=== PATIENT | female | born 1970 | race African-American/Black ===

== ENCOUNTER 2017-02-07 08:30 | Inpatient (IN) | payer OTHER ==
[2017-02-07 09:13] VITALS: BMI 23.3
--- NOTE | 2017-02-07 12:28 | HP ---
COWS - Scale Resting Pulse: 0= ID 80 or Below Sweatin=Flushed/Facial Moisture Restless Observation: 3= Extraneous Movement Pupil Size: 2= Moderately Dilated Bone or Joint Aches: 2= Severe Diffuse Aches Runny Nose/ Eye Tearin= Runny Nose/Eyes GI Upset > 30mins: 3= Vomiting/Diarrhea Tremor Observation: 2= Slight Tremor Visible Yawning Observation: 2= >3x During Session Anxiety or Irritability: 2=Irritable/Anxious Goose Flesh Skin: 0=Smooth Skin COWS Score: 20 CIWA Score - CIWA Score Nausea/Vomitin Muscle Tremors: 3 Anxiety: 3 Agitation: 3 Paroxysmal Sweats: 2 Orientation: 0-Oriented Tacttile Disturbances: 2-Mild Itch/Numbness/Burn Auditory Disturbances: 2-Mild Harshness/Frighten Visual Disturbances: 2-Mild Sensitivity Headache: 2-Mild CIWA-Ar Total Score: 22 Admission ROS [facility]HS - HPI Chief Complaint: i need help to stop using heroin and alcohol Allergies/Adverse Reactions: Allergies Allergy/AdvReac Type Severity Reaction Status Date / Time No Known Allergies Allergy Verified 02/07/17 10:58 History of Present Illness: this 46 years old female with heroin and alcohol dependence,seeking detox,last treatment in 05/05/16 to 01/09/16 [facility] nicotine dependence depression longest period of sobriety 6 years Exam Limitations: No Limitations - Ebola screening Have you traveled outside of the country in the last 21 days: No Have you had contact with anyone from an Ebola affected area: No Have you been sick,other than usual withdrawal symptoms: No Do you have a fever: No - Review of Systems Constitutional: Chills, Diaphoresis, Loss of Appetite, Malaise, Night Sweats, Changes in sleep, Weakness, Unintentional Wgt. Loss EENT: reports: Tearing, Nose Congestion Respiratory: reports: No Symptoms reported Cardiac: reports: Palpitations GI: reports: Diarrhea, Nausea, Vomiting, Abdominal cramping : reports: No Symptoms Reported Musculoskeletal: reports: Back Pain, Joint Pain, Muscle Pain, Joint Stiffness Integumentary: reports: Dryness Neuro: reports: Headache, Tremors Endocrine: reports: No Symptoms Reported Hematology: reports: No Symptoms Reported Psychiatric: reports: Depressed Patient History - Patient Medical History Hx Anemia: No Hx Asthma: No Hx Chronic Obstructive Pulmonary Disease (COPD): No Hx Cancer: No Hx Cardiac Disorders: No Hx Congestive Heart Failure: No Hx Hypertension: No Hx Hypercholesterolemia: No Hx Pacemaker: No HX Cerebrovascular Accident: No Hx Seizures: No Hx Dementia: No Hx Diabetes: No Hx Gastrointestinal Disorders: No Hx Liver Disease: No Hx Genitourinary Disorders: No Hx Sexually Transmitted Disorders: No Hx Renal Disease (ESRD): No Hx Thyroid Disease: No Hx Human Immunodeficiency Virus (HIV): No (last 05/13) Hx Hepatitis C: No Hx Depression: Yes Hx Suicide Attempt: No Hx Bipolar Disorder: No Hx Schizophrenia: Yes (schizoeffective) - Patient Surgical History Past Surgical History: No Hx Neurologic Surgery: No Hx Cataract Extraction: No Hx Cardiac Surgery: No Hx Lung Surgery: No Hx Breast Surgery: No Hx Breast Biopsy: No Hx Abdominal Surgery: No Hx Appendectomy: No Hx Cholecystectomy: No Hx Genitourinary Surgery: No Hx Section: No Hx Orthopedic Surgery: Yes (ambulatory surgery R wrist in 2014 etiology ?) Anesthesia Reaction: No - PPD History Previous Implant?: Yes Documented Results: Negative w/proof Implanted On Prior [facility] Admission?: Yes Date: 11/14/15 PPD to be Administered?: Yes - Reproductive History Patient is a Female of Child Bearing Age (11 -55 yrs old): Yes Last Menstrual Period: 01/26/17 Patient : No - Smoking Cessation Smoking history: Current every day smoker Have you smoked in the past 12 months: Yes Aproximately how many cigarettes per day: 5 Hx Chewing Tobacco Use: No Initiated information on smoking cessation: Yes 'Breaking Loose' booklet given: 02/07/17 - Substance & Tx. History Hx Alcohol Use: Yes Hx Substance Use: Yes Substance Use Type: Alcohol, Heroin Hx Substance Use Treatment: Yes (05/05/16 to 05/10/16) - Substances Abused Alcohol Route: Oral Frequency: Daily Amount used: beer(3-4 -18 oz bottles) Age of first use: 16 Date of Last Use: 02/07/17 Heroin Route: Smoking Frequency: Daily Amount used: 7 bags Age of first use: 30 Date of Last Use: 02/07/17 Family Disease History - Family Disease History Family Disease History: Diabetes: Grandparent (lung/brain), Heart Disease: Mother (htn, PE), CA: Grandparent, Other: Father (substance use) Admission Physical Exam [facility] - Vital Signs Vital Signs: Vital Signs - 24 hr 02/07/17 09:05 Temperature 98 F Pulse Rate 78 Respiratory 20 Rate Blood Pressure 148/84 - Physical General Appearance: Yes: Moderate Distress, Tremorous, Irritable, Sweating, Anxious HEENTM: Yes: Normal ENT Inspection, JUDY, Pharynx Normal Respiratory: Yes: Lungs Clear, Normal Breath Sounds, No Respiratory Distress Neck: Yes: Within Normal Limits, Supple, Trachea in good position Breast: Yes: Breast Exam Deferred Cardiology: Yes: Within Normal Limits, Regular Rhythm, Regular Rate, S1, S2 Abdominal: Yes: Within Normal Limits, Normal Bowel Sounds, Non Tender, Flat, Soft Genitourinary: Yes: Within Normal Limits Back: Yes: Muscle Spasm Musculoskeletal: Yes: Back pain, Muscle Pain (unable to use right hand for 2 years after [facility] hand at [facility] [address] rdz hand surgeon,no follow up) Extremities: Yes: Other (unable to use right hand for 2 years after surgery tingling numbness,pain and neddle of right hand from wrist to had nuable to do flexion of fingerr unable to make a fist unable to do adduction and abduction of fingers of right hand tingling and numbness of right hands and fingers) Neurological: Yes: Alert (tingling and numbness of right hand fingers unable to move right hand and fingers scar of right wrist) Integumentary: Yes: Dry Lymphatic: Yes: Within Normal Limits - Diagnostic (1) Alcohol dependence with uncomplicated withdrawal Current Visit: No Status: Chronic (2) Nicotine dependence Current Visit: No Status: Chronic Qualifiers: Nicotine product type: cigarettes (3) Opioid dependence with withdrawal Current Visit: No Status: Chronic (4) Schizoaffective disorder Current Visit: No Status: Chronic (5) Deformity of right wrist Current Visit: Yes Status: Acute (6) S/P wrist surgery Current Visit: Yes Status: Acute Cleared for Admission [facility] - Detox or Rehab [facility] Level of Care: Medically Managed Detox Regimen/Protocol: Methadone/Librium [facility] Breath Alcohol Content Breath Alcohol Content: 0.036 Urine Pregancy Test - Result Urine Test Results: Negative- NO Line Present Urine Drug Screen - Results Drug Screen Negative: No Urine Drug Screen Results: THC-Marijuana, SLIM-Cocaine, OPI-Opiates, PCP- Phencyclidine
[2017-02-07] MEDS ORDERED: IBUPROFEN 400 MG TABLET (FP) PO PRN (13:04)
[2017-02-07] MEDS ORDERED: MENTHOL/PHENOL 1 EACH UD MM PRN (13:04)
[2017-02-07] MEDS ORDERED: guaiFENesin/D-METHORPHAN HB 10 ML UNIT-DOSE CUPS PO PRN (13:04)
[2017-02-07] MEDS ORDERED: MAGNESIUM CITRATE 300 ML BOTTLE PO PRN (13:04)
[2017-02-07] MEDS ORDERED: LOPERAMIDE HCL 2 MG CAPSULE PO PRN (13:04)
[2017-02-07] MEDS ORDERED: ACETAMINOPHEN 325 MG TABLET (FP) PO PRN (13:04)
[2017-02-07] MEDS ORDERED: MAG HYDROX/AL HYDROX/SIMETH 30 ML UNIT-DOSE CUP PO PRN (13:04)
[2017-02-07] MEDS ORDERED: MAGNESIUM HYDROX 2400MG/30ML ORAL SUSPENSION 30 ML CUP PO PRN (13:04)
[2017-02-07] MEDS ORDERED: chlordiazePOXIDE HCL 25 MG CAPSULE PO PRN (13:04)
[2017-02-07] MEDS ORDERED: P-EPHED 60MG/TRIPROLIDI 2.5MG TABLET PO PRN (13:04)
[2017-02-07] MEDS ORDERED: hydrOXYzine PAMOATE 50 MG CAPSULE (FP) PO PRN (13:04)
[2017-02-07] MEDS ORDERED: chlordiazePOXIDE HCL 25 MG CAPSULE PO ONE (13:45)
[2017-02-07] MEDS ORDERED: METHADONE HCL 10 MG TABLET (FOR DETOX USE ONLY) PO ONE ×2 (13:45→23:00)
--- NOTE | 2017-02-07 14:49 | CONSULT ---
[facility] Psychiatric Consult - Data Date of interview: 02/07/17 Admission source: [facility] Identifying data: This is 46 years old female with history of Scvhizoaffective disorder, intoxicated with: Heroin, Alcohol and Nicotine Substance Abuse History: - Smoking Cessation. Smoking history: Current every day smoker. Have you smoked in the past 12 months: Yes. Aproximately how many cigarettes per day: 5. Hx Chewing Tobacco Use: No. Initiated information on smoking cessation: Yes. 'Breaking Loose' booklet given: 02/07/17. - Substance & Tx. History. Hx Alcohol Use: Yes. Hx Substance Use: Yes. Substance Use Type : Alcohol, Heroin. Hx Substance Use Treatment: Yes (05/05/16 to 05/10/16). - Substances Abused. Alcohol. Route: Oral. Frequency: Daily. Amount used: beer(3-4 -18 oz bottles). Age of first use: 16. Date of Last Use: 02/07/17. * * Heroin. Route: Smoking. Frequency: Daily. Amount used: 7 bags. Age of first use: 30. Date of Last Use: 02/07/17 Medical History: History of Wrist reconstractive surgery, denies bhavna other significant medical poblems Psychiatric History: Patient reports history of Schizoaffective disorder, Bipolar disorder, denies history of psychiatric hospitalizations, reports taking prior to admission: Lexapro 5mg poqd. Aboilify 10mg poqd. Seroquel 100mg po qhs Physical/Sexual Abuse/Trauma History: Denies, unclear PTSD Additional Comment: Lexapro 5mg poqd. Aboilify 10mg poqd. Seroquel 100mg po qhs Mental Status Exam - Mental Status Exam Alert and Oriented to: Person Cognitive Function: Fair Patient Appearance: Well Groomed Mood: Euthymic Affect: Mood Congruent Patient Behavior: Cooperative Speech Pattern: Appropriate Voice Loudness: Normal Thought Process: Goal Oriented Thought Disorder: Being Controlled Hallucinations: Denies Suicidal Ideation: Denies Homicidal Ideation: Denies Insight/Judgement: Fair Sleep: Difficulty falling asleep Appetite: Fair Muscle strength/Tone: Normal Gait/Station: Normal Additional Comments: Lexapro 5mg poqd. Aboilify 10mg poqd. Seroquel 100mg po qhs Psychiatric Findings - Problem List ([place] 1, 2,3) (1) Drug-induced mood disorder Current Visit: No Status: Acute (2) Non compliance w medication regimen Current Visit: No Status: Acute (3) Alcohol dependence with uncomplicated withdrawal Current Visit: No Status: Chronic (4) Nicotine dependence Current Visit: No Status: Chronic Qualifiers: Nicotine product type: cigarettes (5) Opioid dependence with withdrawal Current Visit: No Status: Chronic (6) PTSD (post-traumatic stress disorder) Current Visit: No Status: Chronic (7) Schizoaffective disorder Current Visit: No Status: Chronic - Initial Treatment Plan Initial Treatment Plan: Lexapro 5mg poqd. Aboilify 10mg poqd. Seroquel 100mg po qhs
[2017-02-07 15:40] LABS: HIV 1 & 2 AB NEGATIVE; HIV 1 AGp24 NEGATIVE
[2017-02-07] MEDS: chlordiazePOXIDE HCL 25 MG CAPSULE PO SCH ×2 (17:15→22:41)
[2017-02-07 22:36] LABS: URINE APPEARANCE CLEAR; URINE BILIRUBIN NEGATIVE (NEGATIVE); URINE COLOR AMBER; URINE GLUCOSE (UA) NEGATIVE (NEGATIVE); URINE KETONE TRACE (NEGATIVE); URINE LEUK ESTERASE NEGATIVE (NEGATIVE); URINE NITRITE NEGATIVE (NEGATIVE); URINE PROTEIN NEGATIVE (NEGATIVE)
[2017-02-07 22:40] LABS: URINE BLOOD 1+ (NEGATIVE)
[2017-02-07] MEDS: QUEtiapine FUMARATE 100 MG TABLET (FP) PO SCH (22:41)
[2017-02-07] MEDS: THIAMINE HCL 100 MG TABLET (FP) PO SCH (22:41)
[2017-02-07 22:44] LABS: URINE HYALINE CAST 9 /lpf; URINE MUCUS MODERATE; URINE RBC 4 /hpf (0-3); URINE WBC 3 /hpf (3-5)
[2017-02-08] MEDS: chlordiazePOXIDE HCL 25 MG CAPSULE PO SCH ×4 (06:00→22:28)
--- NOTE | 2017-02-08 09:31 | EKG ---
Test Reason : Blood Pressure : / mmHG Vent. Rate : 068 BPM Atrial Rate : 068 BPM P-R Int : 128 ms QRS Dur : 074 ms QT Int : 400 ms P-R-T Axes : 056 018 042 degrees QTc Int : 425 ms NORMAL SINUS RHYTHM NORMAL ECG NO PREVIOUS ECGS AVAILABLE Confirmed by NEIDA MAYA MD ([id number]) on 02/08/2017 9:31:08 AM Referred By: Confirmed By:NEIDA MAYA MD
[2017-02-08] MEDS ORDERED: METHADONE HCL 10 MG TABLET (FOR DETOX USE ONLY) PO SCH (10:00)
[2017-02-08 10:01] LABS: MCH 32.8 pg (25.7-33.7); MCHC 32.8 g/dl (32.0-36.0); MEAN CELL VOLUME 100.1 fl (80-96); MEAN PLT VOLUME 8.9 fl (7.5-11.1); PLATELET COUNT 218 K/MM3 (134-434); WHITE BLOOD COUNT 11.2 K/mm3 (4.0-10.0)
[2017-02-08 10:14] LABS: ALBUMIN 4.1 g/dl (3.4-5.0); ANION GAP 7 (8-16); CALCIUM 9.3 mg/dL (8.5-10.1); CO2 27 mmol/L (21-32); GLUCOSE,RANDOM 75 mg/dL (74-106)
[2017-02-08 10:19] LABS: ALK PHOS 100 U/L (45-117); BILIRUBIN,TOTAL 0.5 mg/dL (0.2-1.0); CREATININE 1.1 mg/dL (0.55-1.02); SGOT/AST 17 U/L (15-37); SGPT/ALT 17 U/L (12-78); TOT PROT 7.2 g/dl (6.4-8.2)
[2017-02-08] MEDS: ESCITALOPRAM OXALATE 10 MG TABLET (FP) PO SCH (10:20)
[2017-02-08] MEDS: PRENATAL VITAMINS W/ FOLIC ACID TABLET (FP) PO SCH (10:21)
[2017-02-08] MEDS: ARIPiprazole 10 MG TABLET PO SCH (10:23)
--- NOTE | 2017-02-08 10:48 | PN ---
[facility] CIWA - CIWA Score Nausea/Vomitin-No Nausea/No Vomiting Muscle Tremors: 4-Moderate,w/Arms Extend Anxiety: 4-Mod. Anxious/Guarded Agitation: 4-Moderately Restless Paroxysmal Sweats: No Perspiration Orientation: 0-Oriented Tacttile Disturbances: 3-Moderate Itch/Numb/Burn Auditory Disturbances: 0-None Visual Disturbances: 0-None Headache: 0-None Present CIWA-Ar Total Score: 15 S COWS - Scale Resting Pulse: 0= [place] 80 or Below Sweatin= Chills/Flushing Restless Observation: 3= Extraneous Movement Pupil Size: 2= Moderately Dilated Bone or Joint Aches: 2= Severe Diffuse Aches Runny Nose/ Eye Tearin= Nasal Congestion GI Upset > 30mins: 1= Stomach Cramp Tremor Observation of Outstretched Hands: 1= Tremor [place], Not Seen Yawning Observation: 1= 1-2x During Session Anxiety or Irritability: 2=Irritable/Anxious Goose Flesh Skin: 0=Smooth Skin COWS Score: 14 [facility] Progress Note (SOAP) Subjective: ANXIETY,TREMORS,STATES MEDS EFFECTIVE W/S CONTROL. Objective: 02/08/17 10:47 Vital Signs Temperature 96.9 F L 02/08/17 06:24 Pulse Rate 71 02/08/17 06:24 Respiratory Rate 18 02/08/17 06:24 Blood Pressure 101/66 02/08/17 06:24 O2 Sat by Pulse Oximetry (%) Laboratory Last Values WBC 11.2 K/mm3 (4.0-10.0) H D 02/08/17 06:00 RBC 4.46 M/mm3 (3.60-5.2) 02/08/17 06:00 Hgb 14.6 GM/dL (10.7-15.3) D 02/08/17 06:00 Hct 44.7 % (32.4-45.2) 02/08/17 06:00 MCV 100.1 fl (80-96) H 02/08/17 06:00 MCH 32.8 pg (25.7-33.7) 02/08/17 06:00 MCHC 32.8 g/dl (32.0-36.0) 02/08/17 06:00 RDW 14.0 % (11.6-15.6) 02/08/17 06:00 Plt Count 218 K/MM3 (134-434) 02/08/17 06:00 MPV 8.9 fl (7.5-11.1) 02/08/17 06:00 Urine Color Radha 02/07/17 22:00 Urine Appearance Clear 02/07/17 22:00 Urine pH 5.0 (5.0-8.0) 02/07/17 22:00 Ur Specific [place] >= 1.030 (1.005-1.025) H 02/07/17 22:00 Urine Protein Negative (NEGATIVE) 02/07/17 22:00 Urine Glucose (UA) Negative (NEGATIVE) 02/07/17 22:00 Urine Ketones Trace (NEGATIVE) H 02/07/17 22:00 Urine Blood 1+ (NEGATIVE) H 02/07/17 22:00 Urine Nitrite Negative (NEGATIVE) 02/07/17 22:00 Urine Bilirubin Negative (NEGATIVE) 02/07/17 22:00 Urine Urobilinogen 2.0 mg/dL (0.2-1.0) H 02/07/17 22:00 Ur Leukocyte Esterase Negative (NEGATIVE) 02/07/17 22:00 Urine RBC 4 /hpf (0-3) 02/07/17 22:00 Urine WBC 3 /hpf (3-5) 02/07/17 22:00 Ur Epithelial Cells Few /hpf (FEW) 02/07/17 22:00 Hyaline Casts 9 /lpf 02/07/17 22:00 Urine Mucus Moderate 02/07/17 22:00 HIV 1&2 Antibody Screen Negative 02/07/17 11:40 HIV P24 Antigen Negative 02/07/17 11:40 LABS NOTED Assessment: 02/08/17 10:48 WITHDRAWAL SX Plan: CONTINUE DETOX
[2017-02-08] MEDS: THIAMINE HCL 100 MG TABLET (FP) PO SCH (22:28)
[2017-02-08] MEDS: QUEtiapine FUMARATE 100 MG TABLET (FP) PO SCH (22:28)
[2017-02-09] MEDS: chlordiazePOXIDE HCL 25 MG CAPSULE PO SCH ×2 (06:24→10:25)
[2017-02-09] MEDS: PRENATAL VITAMINS W/ FOLIC ACID TABLET (FP) PO SCH (10:24)
[2017-02-09] MEDS: ESCITALOPRAM OXALATE 10 MG TABLET (FP) PO SCH (10:25)
[2017-02-09] MEDS: ARIPiprazole 10 MG TABLET PO SCH (10:25)
[2017-02-09] MEDS: METHADONE HCL 5 MG TABLET (FOR DETOX USE ONLY) PO SCH (10:25)
--- NOTE | 2017-02-09 11:06 | PN ---
[facility] CIWA - CIWA Score Nausea/Vomitin Muscle Tremors: 2 Anxiety: 2 Agitation: 2 Paroxysmal Sweats: 2 Orientation: 0-Oriented Tacttile Disturbances: 1-Very Mild Itch/Numbness Auditory Disturbances: 0-None Visual Disturbances: 0-None Headache: 1-Very Mild CIWA-Ar Total Score: 12 S COWS - Scale Resting Pulse: 0= [place] 80 or Below Sweatin=Flushed/Facial Moisture Restless Observation: 3= Extraneous Movement Pupil Size: 0= Normal to Room Light Bone or Joint Aches: 1= Mild Discomfort Runny Nose/ Eye Tearin= Nasal Congestion GI Upset > 30mins: 2= Nausea/Diarrhea Tremor Observation of Outstretched Hands: 2= Slight Tremor Visible Yawning Observation: 0= None Anxiety or Irritability: 1=Feels Anxious/Irritable Goose Flesh Skin: 0=Smooth Skin COWS Score: 12 S Progress Note (SOAP) Subjective: mild abdominal discomfort, vague aches and pain, mild shakes and sweats Objective: 02/09/17 11:07 Laboratory Last Values WBC 11.2 K/mm3 (4.0-10.0) H D 02/08/17 06:00 RBC 4.46 M/mm3 (3.60-5.2) 02/08/17 06:00 Hgb 14.6 GM/dL (10.7-15.3) D 02/08/17 06:00 Hct 44.7 % (32.4-45.2) 02/08/17 06:00 MCV 100.1 fl (80-96) H 02/08/17 06:00 MCH 32.8 pg (25.7-33.7) 02/08/17 06:00 MCHC 32.8 g/dl (32.0-36.0) 02/08/17 06:00 RDW 14.0 % (11.6-15.6) 02/08/17 06:00 Plt Count 218 K/MM3 (134-434) 02/08/17 06:00 MPV 8.9 fl (7.5-11.1) 02/08/17 06:00 Sodium 139 mmol/L (136-145) 02/08/17 06:00 Potassium 4.0 mmol/L (3.5-5.1) 02/08/17 06:00 Chloride 105 mmol/L (98-107) 02/08/17 06:00 Carbon Dioxide 27 mmol/L (21-32) 02/08/17 06:00 Anion Gap 7 (8-16) L 02/08/17 06:00 BUN 10 mg/dL (7-18) 02/08/17 06:00 Creatinine 1.1 mg/dL (0.55-1.02) H D 02/08/17 06:00 Creat Clearance w eGFR 53.47 (>60) 02/08/17 06:00 Random Glucose 75 mg/dL (74-106) D 02/08/17 06:00 Calcium 9.3 mg/dL (8.5-10.1) 02/08/17 06:00 Total Bilirubin 0.5 mg/dL (0.2-1.0) 02/08/17 06:00 AST 17 U/L (15-37) D 02/08/17 06:00 ALT 17 U/L (12-78) D 02/08/17 06:00 Alkaline Phosphatase 100 U/L (45-117) D 02/08/17 06:00 Total Protein 7.2 g/dl (6.4-8.2) D 02/08/17 06:00 Albumin 4.1 g/dl (3.4-5.0) D 02/08/17 06:00 Urine Color Radha 02/07/17 22:00 Urine Appearance Clear 02/07/17 22:00 Urine pH 5.0 (5.0-8.0) 02/07/17 22:00 Ur Specific [place] >= 1.030 (1.005-1.025) H 02/07/17 22:00 Urine Protein Negative (NEGATIVE) 02/07/17 22:00 Urine Glucose (UA) Negative (NEGATIVE) 02/07/17 22:00 Urine Ketones Trace (NEGATIVE) H 02/07/17 22:00 Urine Blood 1+ (NEGATIVE) H 02/07/17 22:00 Urine Nitrite Negative (NEGATIVE) 02/07/17 22:00 Urine Bilirubin Negative (NEGATIVE) 02/07/17 22:00 Urine Urobilinogen 2.0 mg/dL (0.2-1.0) H 02/07/17 22:00 Ur Leukocyte Esterase Negative (NEGATIVE) 02/07/17 22:00 Urine RBC 4 /hpf (0-3) 02/07/17 22:00 Urine WBC 3 /hpf (3-5) 02/07/17 22:00 Ur Epithelial Cells Few /hpf (FEW) 02/07/17 22:00 Hyaline Casts 9 /lpf 02/07/17 22:00 Urine Mucus Moderate 02/07/17 22:00 RPR Titer Nonreactive (NONREACTIVE) 02/08/17 06:00 HIV 1&2 Antibody Screen Negative 02/07/17 11:40 HIV P24 Antigen Negative 02/07/17 11:40 labs noted Assessment: 02/09/17 11:07 withdrawal sx Plan: continue detox
[2017-02-09] MEDS: chlordiazePOXIDE 5 MG CAPSULE PO SCH ×2 (17:21→22:16)
[2017-02-09] MEDS: THIAMINE HCL 100 MG TABLET (FP) PO SCH (22:15)
[2017-02-09] MEDS: QUEtiapine FUMARATE 100 MG TABLET (FP) PO SCH (22:16)
[2017-02-09] MEDS: diphenhydrAMINE HCL 50 MG CAPSULE PO PRN (22:16)
[2017-02-10] MEDS: chlordiazePOXIDE 5 MG CAPSULE PO SCH ×2 (06:14→10:12)
[2017-02-10] MEDS: PRENATAL VITAMINS W/ FOLIC ACID TABLET (FP) PO SCH (10:12)
[2017-02-10] MEDS: ARIPiprazole 10 MG TABLET PO SCH (10:12)
[2017-02-10] MEDS: METHADONE HCL 5 MG TABLET (FOR DETOX USE ONLY) PO SCH (10:12)
[2017-02-10] MEDS: ESCITALOPRAM OXALATE 10 MG TABLET (FP) PO SCH (10:12)
--- NOTE | 2017-02-10 16:39 | PN ---
[facility] Progress Note (SOAP) Subjective: Anxious, sweating, interrupted sleep, restless Objective: 02/10/17 16:34 Last Vital Signs Temp Pulse Resp BP Pulse Ox 96.7 F L 83 18 133/77 02/10/17 13:47 02/10/17 13:47 02/10/17 13:47 02/10/17 13:47 Laboratory Tests 02/07/17 02/07/17 02/08/17 11:40 22:00 06:00 WBC 11.2 H D RBC 4.46 Hgb 14.6 D Hct 44.7 MCV 100.1 H MCH 32.8 MCHC 32.8 RDW 14.0 Plt Count 218 MPV 8.9 Sodium Potassium Chloride Carbon Dioxide Anion Gap BUN Creatinine Creat Clearance w eGFR Random Glucose Calcium Total Bilirubin AST ALT Alkaline Phosphatase Total Protein Albumin Urine Color Radha Urine Appearance Clear Urine pH 5.0 Ur Specific [place] >= 1.030 H Urine Protein Negative Urine Glucose (UA) Negative Urine Ketones Trace H Urine Blood 1+ H Urine Nitrite Negative Urine Bilirubin Negative Urine Urobilinogen 2.0 H Ur Leukocyte Esterase Negative Urine RBC 4 Urine WBC 3 Ur Epithelial Cells Few Hyaline Casts 9 Urine Mucus Moderate RPR Titer HIV 1&2 Antibody Screen Negative HIV P24 Antigen Negative 02/08/17 02/08/17 06:00 06:00 WBC RBC Hgb Hct MCV MCH MCHC RDW Plt Count MPV Sodium 139 Potassium 4.0 Chloride 105 Carbon Dioxide 27 Anion Gap 7 L BUN 10 Creatinine 1.1 H D Creat Clearance w eGFR 53.47 Random Glucose 75 D Calcium 9.3 Total Bilirubin 0.5 AST 17 D ALT 17 D Alkaline Phosphatase 100 D Total Protein 7.2 D Albumin 4.1 D Urine Color Urine Appearance Urine pH Ur Specific [place] Urine Protein Urine Glucose (UA) Urine Ketones Urine Blood Urine Nitrite Urine Bilirubin Urine Urobilinogen Ur Leukocyte Esterase Urine RBC Urine WBC Ur Epithelial Cells Hyaline Casts Urine Mucus RPR Titer Nonreactive HIV 1&2 Antibody Screen HIV P24 Antigen Labs noted: WBC 11.2, serum creatinine 1.1, GFR 53.47; UA: 1+ blood Assessment: 02/10/17 16:37 Withdrawal symptoms Noted with leukocytosis, prerenal azotemia and microscopic hematuria Plan: Continue detox Leukocytosis: repeat CBC in AM Prerenal azotemia: encouraged to drink lots of water, repeat BMP Microscopic hematuria: repeat UA
[2017-02-10] MEDS: chlordiazePOXIDE HCL 10 MG CAPSULE PO SCH ×2 (17:25→22:40)
[2017-02-10] MEDS: QUEtiapine FUMARATE 100 MG TABLET (FP) PO SCH (22:40)
[2017-02-10] MEDS: THIAMINE HCL 100 MG TABLET (FP) PO SCH (22:40)
[2017-02-10] MEDS: diphenhydrAMINE HCL 50 MG CAPSULE PO PRN (22:40)
[2017-02-11] MEDS: chlordiazePOXIDE HCL 10 MG CAPSULE PO SCH ×2 (05:57→10:29)
[2017-02-11] MEDS ORDERED: METHADONE HCL 10 MG TABLET (FOR DETOX USE ONLY) PO SCH (10:00)
[2017-02-11 10:08] LABS: BASOPHIL 0.5 % (0-2.0); EOSINOPHIL 2.7 % (0-4.5); MCH 32.9 pg (25.7-33.7); MCHC 32.8 g/dl (32.0-36.0); MEAN CELL VOLUME 100.3 fl (80-96); MEAN PLT VOLUME 8.4 fl (7.5-11.1); NEUTROPHILS 55.3 % (42.8-82.8); PLATELET COUNT 178 K/MM3 (134-434); RDW 14.1 % (11.6-15.6); WHITE BLOOD COUNT 8.7 K/mm3 (4.0-10.0)
[2017-02-11 10:11] LABS: URINE APPEARANCE CLEAR; URINE BILIRUBIN NEGATIVE (NEGATIVE); URINE BLOOD NEGATIVE (NEGATIVE); URINE COLOR LTYELLOW; URINE GLUCOSE (UA) NEGATIVE (NEGATIVE); URINE KETONE NEGATIVE (NEGATIVE); URINE LEUK ESTERASE NEGATIVE (NEGATIVE); URINE NITRITE NEGATIVE (NEGATIVE); URINE PROTEIN NEGATIVE (NEGATIVE); URINE UROBILINOGEN NEGATIVE mg/dL (0.2-1.0)
[2017-02-11 10:16] LABS: ANION GAP 4 (8-16); CALCIUM 8.7 mg/dL (8.5-10.1); CO2 28 mmol/L (21-32); CREATININE 0.9 mg/dL (0.55-1.02); GLUCOSE,RANDOM 90 mg/dL (74-106)
[2017-02-11] MEDS: PRENATAL VITAMINS W/ FOLIC ACID TABLET (FP) PO SCH (10:29)
[2017-02-11] MEDS: ARIPiprazole 10 MG TABLET PO SCH (10:29)
[2017-02-11] MEDS: ESCITALOPRAM OXALATE 10 MG TABLET (FP) PO SCH (10:29)
--- NOTE | 2017-02-11 12:08 | PN ---
S Progress Note (SOAP) Subjective: DECREASED ANXIETY,ACHES,TREMORS,IRRITABILITY. DETOX PROCEEDING WELL SCHEDULED Objective: 02/11/17 12:06 Vital Signs Temperature 97.8 F 02/11/17 09:51 Pulse Rate 73 02/11/17 09:51 Respiratory Rate 18 02/11/17 09:51 Blood Pressure 116/73 02/11/17 09:51 O2 Sat by Pulse Oximetry (%) Laboratory Last Values WBC 8.7 K/mm3 (4.0-10.0) 02/11/17 06:30 RBC 3.49 M/mm3 (3.60-5.2) L D 02/11/17 06:30 Hgb 11.5 GM/dL (10.7-15.3) D 02/11/17 06:30 Hct 35.1 % (32.4-45.2) D 02/11/17 06:30 MCV 100.3 fl (80-96) H 02/11/17 06:30 MCH 32.9 pg (25.7-33.7) 02/11/17 06:30 MCHC 32.8 g/dl (32.0-36.0) 02/11/17 06:30 RDW 14.1 % (11.6-15.6) 02/11/17 06:30 Plt Count 178 K/MM3 (134-434) 02/11/17 06:30 MPV 8.4 fl (7.5-11.1) 02/11/17 06:30 Neutrophils % 55.3 % (42.8-82.8) 02/11/17 06:30 Lymphocytes % 32.1 % (8-40) 02/11/17 06:30 Monocytes % 9.4 % (3.8-10.2) 02/11/17 06:30 Eosinophils % 2.7 % (0-4.5) 02/11/17 06:30 Basophils % 0.5 % (0-2.0) 02/11/17 06:30 Sodium 138 mmol/L (136-145) 02/11/17 06:30 Potassium 4.3 mmol/L (3.5-5.1) 02/11/17 06:30 Chloride 106 mmol/L (98-107) 02/11/17 06:30 Carbon Dioxide 28 mmol/L (21-32) 02/11/17 06:30 Anion Gap 4 (8-16) L 02/11/17 06:30 BUN 19 mg/dL (7-18) H D 02/11/17 06:30 Creatinine 0.9 mg/dL (0.55-1.02) 02/11/17 06:30 Creat Clearance w eGFR 53.47 (>60) 02/08/17 06:00 Random Glucose 90 mg/dL (74-106) 02/11/17 06:30 Calcium 8.7 mg/dL (8.5-10.1) 02/11/17 06:30 Total Bilirubin 0.5 mg/dL (0.2-1.0) 02/08/17 06:00 AST 17 U/L (15-37) D 02/08/17 06:00 ALT 17 U/L (12-78) D 02/08/17 06:00 Alkaline Phosphatase 100 U/L (45-117) D 02/08/17 06:00 Total Protein 7.2 g/dl (6.4-8.2) D 02/08/17 06:00 Albumin 4.1 g/dl (3.4-5.0) D 02/08/17 06:00 Urine Color [place] 02/11/17 07:15 Urine Appearance Clear 02/11/17 07:15 Urine pH 7.0 (5.0-8.0) D 02/11/17 07:15 Ur Specific [place] >= 1.030 (1.005-1.025) H 02/07/17 22:00 Urine Protein Negative (NEGATIVE) 02/11/17 07:15 Urine Glucose (UA) Negative (NEGATIVE) 02/11/17 07:15 Urine Ketones Negative (NEGATIVE) 02/11/17 07:15 Urine Blood Negative (NEGATIVE) 02/11/17 07:15 Urine Nitrite Negative (NEGATIVE) 02/11/17 07:15 Urine Bilirubin Negative (NEGATIVE) 02/11/17 07:15 Urine Urobilinogen Negative mg/dL (0.2-1.0) 02/11/17 07:15 Ur Leukocyte Esterase Negative (NEGATIVE) 02/11/17 07:15 Urine RBC 4 /hpf (0-3) 02/07/17 22:00 Urine WBC 3 /hpf (3-5) 02/07/17 22:00 Ur Epithelial Cells Few /hpf (FEW) 02/07/17 22:00 Hyaline Casts 9 /lpf 02/07/17 22:00 Urine Mucus Moderate 02/07/17 22:00 RPR Titer Nonreactive (NONREACTIVE) 02/08/17 06:00 HIV 1&2 Antibody Screen Negative 02/07/17 11:40 HIV P24 Antigen Negative 02/07/17 11:40 Assessment: 02/11/17 12:07 WITHDRAWAL SX Plan: CONTINUE DETOX
[2017-02-11] MEDS: QUEtiapine FUMARATE 100 MG TABLET (FP) PO SCH (22:26)
[2017-02-11] MEDS: THIAMINE HCL 100 MG TABLET (FP) PO SCH (22:26)
[2017-02-11] MEDS: diphenhydrAMINE HCL 50 MG CAPSULE PO PRN (22:27)
[2017-02-12] MEDS ORDERED: METHADONE HCL 5 MG TABLET (FOR DETOX USE ONLY) PO SCH (06:00)
[2017-02-12 06:22] VITALS: BP 118/76; PULSE 76; TEMP 97.2
--- NOTE | 2017-02-12 11:34 | DS ---
[facility] Detox Discharge Summary Admission Date: 02/07/17 Discharge Date: 02/12/17 - History Present History: Alcohol Dependence, Opioid Dependence Additional Comments: DETOX COMPLETED. PT REMINDED TO FOLLOW UP MEDICAL CARE AT [facility] WHEN NEEDED. Pertinent Past History: S/P SX RIGHT WRIST - Physical Exam Results Vital Signs: Vital Signs Temperature 97.2 F L 02/12/17 06:22 Pulse Rate 76 02/12/17 06:22 Respiratory Rate 16 02/12/17 06:22 Blood Pressure 118/76 02/12/17 06:22 O2 Sat by Pulse Oximetry (%) Pertinent Admission Physical Exam Findings: WITHDRAWAL SX Laboratory Last Values WBC 8.7 K/mm3 (4.0-10.0) 02/11/17 06:30 RBC 3.49 M/mm3 (3.60-5.2) L D 02/11/17 06:30 Hgb 11.5 GM/dL (10.7-15.3) D 02/11/17 06:30 Hct 35.1 % (32.4-45.2) D 02/11/17 06:30 MCV 100.3 fl (80-96) H 02/11/17 06:30 MCH 32.9 pg (25.7-33.7) 02/11/17 06:30 MCHC 32.8 g/dl (32.0-36.0) 02/11/17 06:30 RDW 14.1 % (11.6-15.6) 02/11/17 06:30 Plt Count 178 K/MM3 (134-434) 02/11/17 06:30 MPV 8.4 fl (7.5-11.1) 02/11/17 06:30 Neutrophils % 55.3 % (42.8-82.8) 02/11/17 06:30 Lymphocytes % 32.1 % (8-40) 02/11/17 06:30 Monocytes % 9.4 % (3.8-10.2) 02/11/17 06:30 Eosinophils % 2.7 % (0-4.5) 02/11/17 06:30 Basophils % 0.5 % (0-2.0) 02/11/17 06:30 Sodium 138 mmol/L (136-145) 02/11/17 06:30 Potassium 4.3 mmol/L (3.5-5.1) 02/11/17 06:30 Chloride 106 mmol/L (98-107) 02/11/17 06:30 Carbon Dioxide 28 mmol/L (21-32) 02/11/17 06:30 Anion Gap 4 (8-16) L 02/11/17 06:30 BUN 19 mg/dL (7-18) H D 02/11/17 06:30 Creatinine 0.9 mg/dL (0.55-1.02) 02/11/17 06:30 Creat Clearance w eGFR 53.47 (>60) 02/08/17 06:00 Random Glucose 90 mg/dL (74-106) 02/11/17 06:30 Calcium 8.7 mg/dL (8.5-10.1) 02/11/17 06:30 Total Bilirubin 0.5 mg/dL (0.2-1.0) 02/08/17 06:00 AST 17 U/L (15-37) D 02/08/17 06:00 ALT 17 U/L (12-78) D 02/08/17 06:00 Alkaline Phosphatase 100 U/L (45-117) D 02/08/17 06:00 Total Protein 7.2 g/dl (6.4-8.2) D 02/08/17 06:00 Albumin 4.1 g/dl (3.4-5.0) D 02/08/17 06:00 Urine Color Ltyellow 02/11/17 07:15 Urine Appearance Clear 02/11/17 07:15 Urine pH 7.0 (5.0-8.0) D 02/11/17 07:15 Ur Specific [place] 1.020 (1.005-1.025) 02/11/17 07:15 Urine Protein Negative (NEGATIVE) 02/11/17 07:15 Urine Glucose (UA) Negative (NEGATIVE) 02/11/17 07:15 Urine Ketones Negative (NEGATIVE) 02/11/17 07:15 Urine Blood Negative (NEGATIVE) 02/11/17 07:15 Urine Nitrite Negative (NEGATIVE) 02/11/17 07:15 Urine Bilirubin Negative (NEGATIVE) 02/11/17 07:15 Urine Urobilinogen Negative mg/dL (0.2-1.0) 02/11/17 07:15 Ur Leukocyte Esterase Negative (NEGATIVE) 02/11/17 07:15 Urine RBC 4 /hpf (0-3) 02/07/17 22:00 Urine WBC 3 /hpf (3-5) 02/07/17 22:00 Ur Epithelial Cells Few /hpf (FEW) 02/07/17 22:00 Hyaline Casts 9 /lpf 02/07/17 22:00 Urine Mucus Moderate 02/07/17 22:00 RPR Titer Nonreactive (NONREACTIVE) 02/08/17 06:00 HIV 1&2 Antibody Screen Negative 02/07/17 11:40 HIV P24 Antigen Negative 02/07/17 11:40 - Treatment Hospital Course: Detox Protocol Followed, Detoxed Safely, Responded well, Discharged Condition Good Patient has Accepted a Rehab Referral to: PT REFUSED - Medication Discharge Medications: Ambulatory Orders Quetiapine Fumarate [Seroquel] 100 tab PO HS #30 tablet 11/14/15 Aripiprazole [Abilify -] 10 mg PO DAILY 02/07/17 Aripiprazole [Abilify -] 10 mg PO DAILY #30 tablet 02/07/17 Escitalopram Oxalate [Lexapro -] 5 mg PO DAILY 02/07/17 Escitalopram Oxalate [Lexapro -] 5 mg PO DAILY #30 tablet 02/07/17 Quetiapine Fumarate [Seroquel] 100 mg PO HS #30 tablet 02/07/17 - Diagnosis (1) S/P wrist surgery Status: Acute (2) Alcohol dependence with uncomplicated withdrawal Status: Acute (3) Nicotine dependence Status: Acute Qualifiers: Nicotine product type: cigarettes Substance use status: in withdrawal Qualified Code(s): F17.213 - Nicotine dependence, cigarettes, with withdrawal (4) Opioid dependence with withdrawal Status: Acute (5) Schizoaffective disorder Status: Chronic Qualifiers: Schizoaffective disorder type: unspecified Qualified Code(s): F25.9 - Schizoaffective disorder, unspecified - AMA Did Patient Leave Against Medical Advice: No
== END 2017-02-12 08:53 | disposition home or self-care (01) | DRG 773 ==
LOC: YASAS 08:30 → Y3N 11:32
PROVIDERS: ADMIT Internal Medicine; ATTEND Internal Medicine
PROC: HZ2ZZZZ Detoxification Services for Substance Abuse Treatment (ICD-10-PCS; principal; 2017-02-12)
DX: F11.23 Opioid dependence with withdrawal (principal); F10.230 Alcohol dependence with withdrawal, uncomplicated; F17.210 Nicotine dependence, cigarettes, uncomplicated; F19.24 Other psychoactive substance dependence with psychoactive substance-induced mood disorder; F25.9 Schizoaffective disorder, unspecified; F43.10 Post-traumatic stress disorder, unspecified; F32.9 Major depressive disorder, single episode, unspecified; Z91.14 Patient's other noncompliance with medication regimen
CPT/HCPCS: 36415; 80048; 80053; 81003; 81015; 85025; 85027; 86593; 87389; 93005; 93010

== ENCOUNTER 2017-05-24 08:50 | Inpatient (IN) | payer OTHER ==
[2017-05-24 12:47] VITALS: BMI 24.0
--- NOTE | 2017-05-24 14:42 | HP ---
COWS - Scale Resting Pulse: 1= [place] 81-100 Sweatin=Flushed/Facial Moisture Restless Observation: 3= Extraneous Movement Pupil Size: 2= Moderately Dilated Bone or Joint Aches: 2= Severe Diffuse Aches Runny Nose/ Eye Tearin= Runny Nose/Eyes GI Upset > 30mins: 3= Vomiting/Diarrhea Tremor Observation: 2= Slight Tremor Visible Yawning Observation: 2= >3x During Session Anxiety or Irritability: 2=Irritable/Anxious Goose Flesh Skin: 0=Smooth Skin COWS Score: 21 CIWA Score - CIWA Score Nausea/Vomitin Muscle Tremors: 3 Anxiety: 3 Agitation: 3 Paroxysmal Sweats: 3 Orientation: 0-Oriented Tacttile Disturbances: 2-Mild Itch/Numbness/Burn Auditory Disturbances: 2-Mild Harshness/Frighten Visual Disturbances: 2-Mild Sensitivity Headache: 2-Mild CIWA-Ar Total Score: 23 Admission ROS BHS - HPI Chief Complaint: i need help to stop using heroin an d drinking alcohol Allergies/Adverse Reactions: Allergies Allergy/AdvReac Type Severity Reaction Status Date / Time No Known Allergies Allergy Verified 05/24/17 14:14 History of Present Illness: this 27 years old female with heroin and alcohol dependence,seeking detox,last treatment [facility] 02/07/17 to 02/12/17sthma bipolar disorder,ptsd nicotine dependence fx of right humerus right s/p surgery of right wrist 2015 had numbness and unable to use right hand and wrist - Ebola screening Have you traveled outside of the country in the last 21 days: No Have you had contact with anyone from an Ebola affected area: No Have you been sick,other than usual withdrawal symptoms: No - Review of Systems Constitutional: Chills, Diaphoresis, Loss of Appetite, Malaise, Night Sweats, Changes in sleep, Unintentional Wgt. Loss, Other EENT: reports: Tearing, Nose Congestion Respiratory: reports: No Symptoms reported (asthma), Other Cardiac: reports: No Symptoms Reported GI: reports: Diarrhea, Nausea, Vomiting, Abdominal cramping : reports: No Symptoms Reported Musculoskeletal: reports: Back Pain, Joint Pain, Muscle Pain, Joint Stiffness Integumentary: reports: Dryness Neuro: reports: Headache, Tremors Endocrine: reports: No Symptoms Reported Hematology: reports: No Symptoms Reported Psychiatric: reports: No Sypmtoms Reported, Judgement Intact, Mood/Affect Appropiate, Anxious, Depressed Patient History - Patient Medical History Hx Anemia: No Hx Asthma: Yes (asthma) Hx Chronic Obstructive Pulmonary Disease (COPD): No Hx Cancer: No Hx Cardiac Disorders: No Hx Congestive Heart Failure: No Hx Hypertension: No Hx Hypercholesterolemia: No Hx Pacemaker: No HX Cerebrovascular Accident: No Hx Seizures: No Hx Dementia: No Hx Diabetes: No Hx Gastrointestinal Disorders: No Hx Liver Disease: No Hx Genitourinary Disorders: No Hx Sexually Transmitted Disorders: No Hx Renal Disease (ESRD): No Hx Thyroid Disease: No Hx Human Immunodeficiency Virus (HIV): No (last 02/11 negative) Hx Hepatitis C: No Hx Depression: Yes (anxiety) Hx Suicide Attempt: No Hx Bipolar Disorder: No Hx Schizophrenia: No Other Medical History: ptsd,no suicidal,no homicidal - Patient Surgical History Past Surgical History: No Hx Neurologic Surgery: No Hx Cataract Extraction: No Hx Cardiac Surgery: No Hx Lung Surgery: No Hx Breast Surgery: No Hx Breast Biopsy: No Hx Abdominal Surgery: No Hx Appendectomy: No Hx Cholecystectomy: No Hx Genitourinary Surgery: No Hx Section: No Hx Orthopedic Surgery: Yes (ambulatory surgery R wrist in 2014 etiology ?) Other Surgical History: pt has no use of rt hand for 2 yrs since surgery Anesthesia Reaction: No - PPD History Previous Implant?: Yes Documented Results: Negative w/proof Implanted On Prior R Admission?: Yes Date: 02/09/17 Results: 0MM PPD to be Administered?: No - Reproductive History Patient is a Female of Child Bearing Age (11 -55 yrs old): Yes Last Menstrual Period: 04/28/17 Patient : No - Smoking Cessation Smoking history: Current every day smoker Have you smoked in the past 12 months: Yes Aproximately how many cigarettes per day: 5 Hx Chewing Tobacco Use: No Initiated information on smoking cessation: Yes 'Breaking Loose' booklet given: 05/24/17 - Substance & Tx. History Hx Alcohol Use: Yes Hx Substance Use: Yes Substance Use Type: Alcohol, Heroin, Marijuana - Substances Abused Heroin Route: Inhalation Frequency: Daily Amount used: 5 BAGS Age of first use: 30 Date of Last Use: 05/24/17 Alcohol Route: Oral Frequency: Daily Amount used: 3 18 OZ BEERS Age of first use: 16 Date of Last Use: 05/24/17 Marijuana/Hashish Route: Smoking Frequency: 1-3 times last 30 days Amount used: 2-3 TOKES Age of first use: 16 Date of Last Use: 05/22/17 Family Disease History - Family Disease History Family Disease History: Diabetes: Grandparent (lung/brain), Heart Disease: Mother (htn, PE), CA: Grandparent, Other: Father (substance use) Admission Physical Exam S - Vital Signs Vital Signs: Vital Signs - 24 hr 05/24/17 12:44 Temperature 98 F Pulse Rate 82 Respiratory 20 Rate Blood Pressure 110/73 - Physical General Appearance: Yes: Moderate Distress, Tremorous, Irritable, Sweating HEENTM: Yes: Within Normal Limits, Normal ENT Inspection, JUDY, Pharynx Normal Respiratory: Yes: Lungs Clear, Normal Breath Sounds, No Respiratory Distress Neck: Yes: Within Normal Limits, Supple, Trachea in good position Breast: Yes: Breast Exam Deferred Cardiology: Yes: Within Normal Limits, Regular Rhythm, Regular Rate, S1, S2 Abdominal: Yes: Within Normal Limits, Normal Bowel Sounds, Non Tender, Flat, Soft Genitourinary: Yes: Within Normal Limits Back: Yes: Normal Inspection, Muscle Spasm Musculoskeletal: Yes: Back pain, Muscle Pain Extremities: Yes: Tremors (weakess of right hand,uable to use it after surgery, numbness of fingers) Neurological: Yes: [employer] II-XII NML intact, Fully Oriented (see extremities), Alert Integumentary: Yes: Dry Lymphatic: Yes: Within Normal Limits - Diagnostic (1) Opioid dependence with withdrawal Current Visit: Yes Status: Acute (2) Alcohol dependence with uncomplicated withdrawal Current Visit: Yes Status: Acute (3) Deformity of right wrist Current Visit: Yes Status: Chronic (4) Nicotine dependence Current Visit: Yes Status: Acute Qualifiers: Nicotine product type: cigarettes Substance use status: in withdrawal Qualified Code(s): F17.213 - Nicotine dependence, cigarettes, with withdrawal; F17.213 - Nicotine dependence, cigarettes, with withdrawal (5) S/P wrist surgery Current Visit: No Status: Acute (6) PTSD (post-traumatic stress disorder) Current Visit: No Status: Chronic (7) Schizoaffective disorder Current Visit: Yes Status: Chronic Qualifiers: Schizoaffective disorder type: unspecified Qualified Code(s): F25.9 - Schizoaffective disorder, unspecified; F25.9 - Schizoaffective disorder, unspecified; F25.9 - Schizoaffective disorder, unspecified; F25.9 - Schizoaffective disorder, unspecified Comment: History as per self-report. (8) Arthritis of both knees Current Visit: Yes Status: Acute (9) Low back pain Current Visit: Yes Status: Acute (10) Weakness of right hand Current Visit: Yes Status: Acute Cleared for Admission [facility] - Detox or Rehab [facility] Level of Care: Medically Managed Detox Regimen/Protocol: Methadone/Librium [facility] Breath Alcohol Content Breath Alcohol Content: 0 Urine Pregancy Test - Result Urine Test Results: Negative- NO Line Present Urine Drug Screen - Results Drug Screen Negative: No Urine Drug Screen Results: THC-Marijuana, SLIM-Cocaine, OPI-Opiates
[2017-05-24] MEDS ORDERED: MAGNESIUM CITRATE 300 ML BOTTLE PO PRN (14:53)
[2017-05-24] MEDS ORDERED: guaiFENesin/D-METHORPHAN HB 10 ML UNIT-DOSE CUPS PO PRN (14:53)
[2017-05-24] MEDS ORDERED: ACETAMINOPHEN 325 MG TABLET (FP) PO PRN (14:53)
[2017-05-24] MEDS ORDERED: chlordiazePOXIDE HCL 25 MG CAPSULE PO PRN (14:53)
[2017-05-24] MEDS ORDERED: NICOTINE POLACRILEX 2 MG GUM BUC PRN (14:53)
[2017-05-24] MEDS ORDERED: MAGNESIUM HYDROX 2400MG/30ML ORAL SUSPENSION 30 ML CUP PO PRN (14:53)
[2017-05-24] MEDS ORDERED: P-EPHED 60MG/TRIPROLIDI 2.5MG TABLET PO PRN (14:53)
[2017-05-24] MEDS ORDERED: MAG HYDROX/AL HYDROX/SIMETH 30 ML UNIT-DOSE CUP PO PRN (14:53)
[2017-05-24] MEDS ORDERED: MENTHOL/PHENOL 1 EACH UD MM PRN (14:53)
[2017-05-24] MEDS ORDERED: IBUPROFEN 400 MG TABLET (FP) PO PRN (14:53)
[2017-05-24] MEDS ORDERED: LOPERAMIDE HCL 2 MG CAPSULE PO PRN (14:53)
[2017-05-24] MEDS ORDERED: diphenhydrAMINE HCL 50 MG CAPSULE PO PRN (14:53)
[2017-05-24] MEDS ORDERED: METHADONE HCL 10 MG TABLET (FOR DETOX USE ONLY) PO ONE ×2 (15:08→23:00)
[2017-05-24 16:57] LABS: HIV 1 & 2 AB NEGATIVE; HIV 1 AGp24 NEGATIVE
[2017-05-24] MEDS: chlordiazePOXIDE HCL 25 MG CAPSULE PO SCH ×2 (17:02→22:21)
--- NOTE | 2017-05-24 18:40 | CONSULT ---
[facility] Psychiatric Consult - Data Date of interview: 05/24/17 Admission source: [facility] Identifying data: Readmission to [facility] for this 47 y/o AA female seeking detox treatment on for alcohol,heroin and marijuana dependence.Patient is single without children,domiciled,unemployed (disabled) and supported on SSI benefits. Substance Abuse History: Patient confirmed dependence on alcohol,heroin and cannabis. Smoking history: Current every day smoker. Have you smoked in the past 12 months: Yes. Aproximately how many cigarettes per day: 5. Hx Chewing Tobacco Use: No. Initiated information on smoking cessation: Yes. 'Breaking Loose' booklet given: 05/24/17. - Substance & Tx. History. Hx Alcohol Use: Yes. Hx Substance Use: Yes. Substance Use Type: Alcohol, Heroin, Marijuana. - Substances Abused. Heroin. Route: Inhalation. Frequency: Daily. Amount used: 5 BAGS. Age of first use: 30. Date of Last Use: 05/24/17. Alcohol. Route: Oral. Frequency: Daily. Amount used: 3 18 OZ BEERS. Age of first use : 16. Date of Last Use: 05/24/17. Marijuana/Hashish. Route: Smoking. Frequency: 1-3 times last 30 days. Amount used: 2-3 TOKES. Age of first use: 16. Date of Last Use: 05/22/17 Medical History: Bronchial asthma and a past history of orthosurgery (right wrist) in 2014. Psychiatric History: Diagnosed with Schizoaffective Disorder and PTSD.No reported history of psychiatric hospitalizations.Ms Edgar gets outpatient psychiatric services at [facility] in [facility].Prescribed lexapro 5 mg/day + seroquel 100 mg/hs.Patient denies history of suicide attempts. Physical/Sexual Abuse/Trauma History: Not discussed.Patient declines to comment on this domain. Additional Comment: Urine Drug Screen Results: THC-Marijuana, SLIM-Cocaine, OPI- Opiates.Noted. Mental Status Exam - Mental Status Exam Alert and Oriented to: Time, Place, Person Cognitive Function: Good Patient Appearance: Well Groomed Mood: Withdrawn, Hopeful Affect: Appropriate, Normal Range Patient Behavior: Fatigued, Cooperative Speech Pattern: Clear, Appropriate Voice Loudness: Normal Thought Process: Intact, Goal Oriented Thought Disorder: Not Present Hallucinations: Denies Suicidal Ideation: Denies Homicidal Ideation: Denies Insight/Judgement: Poor Sleep: Fair Appetite: Good Muscle strength/Tone: Normal Gait/Station: Normal Psychiatric Findings - Problem List ([place] 1, 2,3) (1) Alcohol dependence with uncomplicated withdrawal Current Visit: Yes Status: Acute (2) Cocaine dependence Current Visit: Yes Status: Acute (3) Opioid dependence with withdrawal Current Visit: Yes Status: Acute (4) Nicotine dependence Current Visit: Yes Status: Acute Qualifiers: Nicotine product type: cigarettes Substance use status: in withdrawal Qualified Code(s): F17.213 - Nicotine dependence, cigarettes, with withdrawal; F17.213 - Nicotine dependence, cigarettes, with withdrawal (5) Marihuana dependence Current Visit: Yes Status: Acute (6) Drug-induced mood disorder Current Visit: Yes Status: Acute (7) Schizoaffective disorder Current Visit: Yes Status: Chronic Qualifiers: Schizoaffective disorder type: unspecified Qualified Code(s): F25.9 - Schizoaffective disorder, unspecified; F25.9 - Schizoaffective disorder, unspecified; F25.9 - Schizoaffective disorder, unspecified; F25.9 - Schizoaffective disorder, unspecified Comment: History as per self-report. (8) Arthritis of both knees Current Visit: Yes Status: Acute (9) Low back pain Current Visit: Yes Status: Acute (10) Deformity of right wrist Current Visit: Yes Status: Chronic - Initial Treatment Plan Initial Treatment Plan: Psychoeducation.Detoxification.Medications : seroquel 100 mg po hs + lexapro 5 mg po daily.Side effects/benefits discussed with the patient.She agrees with careplan.Observation.
[2017-05-24 18:58] LABS: URINE APPEARANCE SLCLOUDY; URINE BILIRUBIN NEGATIVE (NEGATIVE); URINE BLOOD 1+ (NEGATIVE); URINE COLOR YELLOW; URINE GLUCOSE (UA) NEGATIVE (NEGATIVE); URINE KETONE NEGATIVE (NEGATIVE); URINE NITRITE NEGATIVE (NEGATIVE); URINE PROTEIN NEGATIVE (NEGATIVE); URINE UROBILINOGEN NEGATIVE mg/dL (0.2-1.0)
[2017-05-24 20:10] LABS: URINE HYALINE CAST 1 /lpf; URINE MUCUS RARE; URINE RBC 2 /hpf (0-3); URINE WBC 1 /hpf (3-5)
[2017-05-24 21:29] LABS: URINE LEUK ESTERASE Negative (NEGATIVE)
[2017-05-24] MEDS: QUEtiapine FUMARATE 100 MG TABLET (FP) PO SCH (22:20)
[2017-05-24] MEDS: THIAMINE HCL 100 MG TABLET (FP) PO SCH (22:20)
[2017-05-25] MEDS: chlordiazePOXIDE HCL 25 MG CAPSULE PO SCH ×4 (05:44→22:43)
[2017-05-25] MEDS ORDERED: METHADONE HCL 10 MG TABLET (FOR DETOX USE ONLY) PO SCH (10:00)
[2017-05-25] MEDS: PRENATAL VITAMINS W/ FOLIC ACID TABLET (FP) PO SCH (10:33)
[2017-05-25] MEDS: ESCITALOPRAM OXALATE 10 MG TABLET (FP) PO SCH (10:33)
[2017-05-25 11:14] LABS: ALBUMIN 3.8 g/dl (3.4-5.0); ANION GAP 7 (8-16); CALCIUM 8.3 mg/dL (8.5-10.1); CO2 25 mmol/L (21-32); CREATININE 0.9 mg/dL (0.55-1.02); GLUCOSE,RANDOM 98 mg/dL (74-106); SGOT/AST 15 U/L (15-37); SGPT/ALT 19 U/L (12-78)
[2017-05-25 11:16] LABS: ALK PHOS 96 U/L (45-117); BILIRUBIN,TOTAL 0.6 mg/dL (0.2-1.0); TOT PROT 6.8 g/dl (6.4-8.2)
[2017-05-25 11:19] LABS: MCH 33.4 pg (25.7-33.7); MCHC 33.3 g/dl (32.0-36.0); MEAN CELL VOLUME 100.4 fl (80-96); MEAN PLT VOLUME 9.9 fl (7.5-11.1); PLATELET COUNT 260 K/MM3 (134-434); RDW 13.6 % (11.6-15.6); WHITE BLOOD COUNT 10.6 K/mm3 (4.0-10.0)
[2017-05-25] MEDS ORDERED: FLU VACCINE QUAD 60 MCG/0.5 ML (MDV 17-18) IM ONE (12:00)
--- NOTE | 2017-05-25 13:52 | PN ---
S CIWA - CIWA Score Nausea/Vomitin Muscle Tremors: 3 Anxiety: 3 Agitation: 2 Paroxysmal Sweats: 1-Minimal Palms Moist Orientation: 0-Oriented Tacttile Disturbances: 1-Very Mild Itch/Numbness Auditory Disturbances: 1-Very Mild Visual Disturbances: 0-None Headache: 2-Mild CIWA-Ar Total Score: 16 BHS Progress Note (SOAP) Subjective: ALERT,IRRITABLE,ANXIOUS,INTERRUPTED SLEEP,TREMOR,PAIN IN THE BODY AND BACK,KNEE, WEAKNESS OF RIGHT HAND CHRONIC Objective: 05/25/17 13:46 05/25/17 13:47 Vital Signs Temperature 97.1 F L 05/25/17 10:35 Pulse Rate 81 05/25/17 10:35 Respiratory Rate 18 05/25/17 10:35 Blood Pressure 116/72 05/25/17 10:35 O2 Sat by Pulse Oximetry (%) EKG NSR,INVERTED T IN AVL NO CHEST PAIN,NO SOB,NO DIZZINESS Laboratory Last Values WBC 10.6 K/mm3 (4.0-10.0) H 05/25/17 06:08 RBC 4.10 M/mm3 (3.60-5.2) 05/25/17 06:08 Hgb 13.7 GM/dL (10.7-15.3) D 05/25/17 06:08 Hct 41.2 % (32.4-45.2) D 05/25/17 06:08 MCV 100.4 fl (80-96) H 05/25/17 06:08 MCH 33.4 pg (25.7-33.7) 05/25/17 06:08 MCHC 33.3 g/dl (32.0-36.0) 05/25/17 06:08 RDW 13.6 % (11.6-15.6) 05/25/17 06:08 Plt Count 260 K/MM3 (134-434) D 05/25/17 06:08 MPV 9.9 fl (7.5-11.1) D 05/25/17 06:08 Sodium 137 mmol/L (136-145) 05/25/17 06:08 Potassium 4.1 mmol/L (3.5-5.1) 05/25/17 06:08 Chloride 105 mmol/L (98-107) 05/25/17 06:08 Carbon Dioxide 25 mmol/L (21-32) 05/25/17 06:08 Anion Gap 7 (8-16) L 05/25/17 06:08 BUN 7 mg/dL (7-18) D 05/25/17 06:08 Creatinine 0.9 mg/dL (0.55-1.02) 05/25/17 06:08 Creat Clearance w eGFR > 60 (>60) 05/25/17 06:08 Random Glucose 98 mg/dL (74-106) 05/25/17 06:08 Calcium 8.3 mg/dL (8.5-10.1) L 05/25/17 06:08 Total Bilirubin 0.6 mg/dL (0.2-1.0) 05/25/17 06:08 AST 15 U/L (15-37) 05/25/17 06:08 ALT 19 U/L (12-78) 05/25/17 06:08 Alkaline Phosphatase 96 U/L (45-117) 05/25/17 06:08 Total Protein 6.8 g/dl (6.4-8.2) 05/25/17 06:08 Albumin 3.8 g/dl (3.4-5.0) 05/25/17 06:08 Urine Color Yellow 05/24/17 17:30 Urine Appearance Slcloudy 05/24/17 17:30 Urine pH 5.0 (5.0-8.0) D 05/24/17 17:30 Ur Specific [place] 1.015 (1.005-1.025) 05/24/17 17:30 Urine Protein Negative (NEGATIVE) 05/24/17 17:30 Urine Glucose (UA) Negative (NEGATIVE) 05/24/17 17:30 Urine Ketones Negative (NEGATIVE) 05/24/17 17:30 Urine Blood 1+ (NEGATIVE) H 05/24/17 17:30 Urine Nitrite Negative (NEGATIVE) 05/24/17 17:30 Urine Bilirubin Negative (NEGATIVE) 05/24/17 17:30 Urine Urobilinogen Negative mg/dL (0.2-1.0) 05/24/17 17:30 Ur Leukocyte Esterase Negative (NEGATIVE) 05/24/17 17:30 Urine RBC 2 /hpf (0-3) 05/24/17 17:30 Urine WBC 1 /hpf (3-5) 05/24/17 17:30 Ur Epithelial Cells Rare /hpf (FEW) 05/24/17 17:30 Hyaline Casts 1 /lpf 05/24/17 17:30 Urine Mucus Rare 05/24/17 17:30 RPR Titer Nonreactive (NONREACTIVE) 05/25/17 06:08 HIV 1&2 Antibody Screen Negative 05/24/17 14:25 HIV P24 Antigen Negative 05/24/17 14:25 Assessment: 05/25/17 13:49 WITHDRAWAL SYMPTOM Plan: CONTINUE DETOX,ENCOURAGE ORAL FLUID,CBC WBC 10.600,REPEAT CBC IN AM
[2017-05-25] MEDS: THIAMINE HCL 100 MG TABLET (FP) PO SCH (22:43)
[2017-05-25] MEDS: QUEtiapine FUMARATE 100 MG TABLET (FP) PO SCH (22:43)
[2017-05-26] MEDS: chlordiazePOXIDE HCL 25 MG CAPSULE PO SCH ×2 (06:34→10:37)
--- NOTE | 2017-05-26 09:13 | EKG ---
Test Reason : Blood Pressure : / mmHG Vent. Rate : 076 BPM Atrial Rate : 076 BPM P-R Int : 114 ms QRS Dur : 088 ms QT Int : 392 ms P-R-T Axes : 025 -03 067 degrees QTc Int : 441 ms NORMAL SINUS RHYTHM INFERIOR INFARCT , AGE UNDETERMINED ABNORMAL ECG WHEN COMPARED WITH ECG OF 07-FEB-2017 13:43, INFERIOR INFARCT IS NOW PRESENT Confirmed by RONEL DAVIDSON, PRITI ([id number]) on 05/26/2017 9:12:35 AM Referred By: Confirmed By:PRITI RODNEY MD
[2017-05-26] MEDS: ESCITALOPRAM OXALATE 10 MG TABLET (FP) PO SCH (10:36)
[2017-05-26] MEDS: PRENATAL VITAMINS W/ FOLIC ACID TABLET (FP) PO SCH (10:36)
[2017-05-26] MEDS: METHADONE HCL 5 MG TABLET (FOR DETOX USE ONLY) PO SCH (10:37)
[2017-05-26 11:09] LABS: MCH 33.6 pg (25.7-33.7); MCHC 33.7 g/dl (32.0-36.0); MEAN CELL VOLUME 99.7 fl (80-96); MEAN PLT VOLUME 9.3 fl (7.5-11.1); PLATELET COUNT 225 K/MM3 (134-434); RDW 13.8 % (11.6-15.6); WHITE BLOOD COUNT 4.4 K/mm3 (4.0-10.0)
--- NOTE | 2017-05-26 14:01 | PN ---
S CIWA - CIWA Score Nausea/Vomitin Muscle Tremors: 3 Anxiety: 3 Agitation: 2 Paroxysmal Sweats: 1-Minimal Palms Moist Orientation: 0-Oriented Tacttile Disturbances: 1-Very Mild Itch/Numbness Auditory Disturbances: 1-Very Mild Visual Disturbances: 0-None Headache: 2-Mild CIWA-Ar Total Score: 16 BHS COWS - Scale Resting Pulse: 1= [place] 81-100 Sweatin= Chills/Flushing Restless Observation: 3= Extraneous Movement Pupil Size: 1= Pupils >than Normal Bone or Joint Aches: 2= Severe Diffuse Aches Runny Nose/ Eye Tearin= Nasal Congestion GI Upset > 30mins: 2= Nausea/Diarrhea Tremor Observation of Outstretched Hands: 2= Slight Tremor Visible Yawning Observation: 1= 1-2x During Session Anxiety or Irritability: 2=Irritable/Anxious Goose Flesh Skin: 0=Smooth Skin COWS Score: 16 S Progress Note (SOAP) Subjective: ALERT,IRRITABLE,ANXIOUS,INTERRUPTED SLEEP,PAIN IN THE BODY AND BACK Objective: 05/26/17 14:00 Vital Signs Temperature 96.8 F L 05/26/17 13:53 Pulse Rate 81 05/26/17 13:53 Respiratory Rate 17 05/26/17 13:53 Blood Pressure 131/79 05/26/17 13:53 O2 Sat by Pulse Oximetry (%) Laboratory Results - last 24 hr 05/26/17 07:30 WBC 4.4 D RBC 3.65 Hgb 12.3 D Hct 36.3 MCV 99.7 H MCH 33.6 MCHC 33.7 RDW 13.8 Plt Count 225 MPV 9.3 Assessment: 05/26/17 14:01 WITHDRAWAL SYMPTOM Plan: CONTINUE DETOX
[2017-05-26] MEDS: chlordiazePOXIDE 5 MG CAPSULE PO SCH ×2 (17:05→22:22)
[2017-05-26] MEDS: QUEtiapine FUMARATE 100 MG TABLET (FP) PO SCH (22:22)
[2017-05-26] MEDS: THIAMINE HCL 100 MG TABLET (FP) PO SCH (22:22)
[2017-05-27] MEDS: chlordiazePOXIDE 5 MG CAPSULE PO SCH ×2 (06:37→10:12)
[2017-05-27] MEDS: METHADONE HCL 5 MG TABLET (FOR DETOX USE ONLY) PO SCH (10:11)
[2017-05-27] MEDS: ESCITALOPRAM OXALATE 10 MG TABLET (FP) PO SCH (10:11)
[2017-05-27] MEDS: PRENATAL VITAMINS W/ FOLIC ACID TABLET (FP) PO SCH (10:11)
--- NOTE | 2017-05-27 10:36 | PN ---
BHS Progress Note (SOAP) Subjective: agitation anxiety sweats interrupted sleep Objective: 05/27/17 10:36 Vital Signs Temperature 98.1 F 05/27/17 09:41 Pulse Rate 66 05/27/17 09:41 Respiratory Rate 18 05/27/17 09:41 Blood Pressure 112/70 05/27/17 09:41 O2 Sat by Pulse Oximetry (%) Laboratory Tests 05/24/17 05/24/17 05/25/17 14:25 17:30 06:08 WBC 10.6 H RBC 4.10 Hgb 13.7 D Hct 41.2 D MCV 100.4 H MCH 33.4 MCHC 33.3 RDW 13.6 Plt Count 260 D MPV 9.9 D Sodium Potassium Chloride Carbon Dioxide Anion Gap BUN Creatinine Creat Clearance w eGFR Random Glucose Calcium Total Bilirubin AST ALT Alkaline Phosphatase Total Protein Albumin Urine Color Yellow Urine Appearance Slcloudy Urine pH 5.0 D Ur Specific [place] 1.015 Urine Protein Negative Urine Glucose (UA) Negative Urine Ketones Negative Urine Blood 1+ H Urine Nitrite Negative Urine Bilirubin Negative Urine Urobilinogen Negative Ur Leukocyte Esterase Negative Urine RBC 2 Urine WBC 1 Ur Epithelial Cells Rare Hyaline Casts 1 Urine Mucus Rare RPR Titer HIV 1&2 Antibody Screen Negative HIV P24 Antigen Negative 05/25/17 05/25/17 05/26/17 06:08 06:08 07:30 WBC 4.4 D RBC 3.65 Hgb 12.3 D Hct 36.3 MCV 99.7 H MCH 33.6 MCHC 33.7 RDW 13.8 Plt Count 225 MPV 9.3 Sodium 137 Potassium 4.1 Chloride 105 Carbon Dioxide 25 Anion Gap 7 L BUN 7 D Creatinine 0.9 Creat Clearance w eGFR > 60 Random Glucose 98 Calcium 8.3 L Total Bilirubin 0.6 AST 15 ALT 19 Alkaline Phosphatase 96 Total Protein 6.8 Albumin 3.8 Urine Color Urine Appearance Urine pH Ur Specific [place] Urine Protein Urine Glucose (UA) Urine Ketones Urine Blood Urine Nitrite Urine Bilirubin Urine Urobilinogen Ur Leukocyte Esterase Urine RBC Urine WBC Ur Epithelial Cells Hyaline Casts Urine Mucus RPR Titer Nonreactive HIV 1&2 Antibody Screen HIV P24 Antigen aaox3 ambulating no acute distress Assessment: 05/27/17 10:39 withdrawal sx Plan: continue detox increase fluids
[2017-05-27] MEDS: chlordiazePOXIDE HCL 10 MG CAPSULE PO SCH ×2 (17:35→22:14)
[2017-05-27] MEDS: THIAMINE HCL 100 MG TABLET (FP) PO SCH (22:14)
[2017-05-27] MEDS: QUEtiapine FUMARATE 100 MG TABLET (FP) PO SCH (22:14)
[2017-05-28] MEDS: chlordiazePOXIDE HCL 10 MG CAPSULE PO SCH ×2 (06:44→10:39)
[2017-05-28] MEDS ORDERED: METHADONE HCL 10 MG TABLET (FOR DETOX USE ONLY) PO SCH (10:00)
[2017-05-28] MEDS: ESCITALOPRAM OXALATE 10 MG TABLET (FP) PO SCH (10:38)
[2017-05-28] MEDS: PRENATAL VITAMINS W/ FOLIC ACID TABLET (FP) PO SCH (10:38)
--- NOTE | 2017-05-28 13:52 | PN ---
[facility] Progress Note (SOAP) Subjective: Diarrhea, shakes, interrupted sleep, restlessness Objective: 05/28/17 13:50 Vital Signs Temperature 97.5 F L 05/28/17 10:00 Pulse Rate 72 05/28/17 10:00 Respiratory Rate 18 05/28/17 10:00 Blood Pressure 140/88 05/28/17 10:00 O2 Sat by Pulse Oximetry (%) Laboratory Last Values WBC 4.4 K/mm3 (4.0-10.0) D 05/26/17 07:30 RBC 3.65 M/mm3 (3.60-5.2) 05/26/17 07:30 Hgb 12.3 GM/dL (10.7-15.3) D 05/26/17 07:30 Hct 36.3 % (32.4-45.2) 05/26/17 07:30 MCV 99.7 fl (80-96) H 05/26/17 07:30 MCH 33.6 pg (25.7-33.7) 05/26/17 07:30 MCHC 33.7 g/dl (32.0-36.0) 05/26/17 07:30 RDW 13.8 % (11.6-15.6) 05/26/17 07:30 Plt Count 225 K/MM3 (134-434) 05/26/17 07:30 MPV 9.3 fl (7.5-11.1) 05/26/17 07:30 Sodium 137 mmol/L (136-145) 05/25/17 06:08 Potassium 4.1 mmol/L (3.5-5.1) 05/25/17 06:08 Chloride 105 mmol/L (98-107) 05/25/17 06:08 Carbon Dioxide 25 mmol/L (21-32) 05/25/17 06:08 Anion Gap 7 (8-16) L 05/25/17 06:08 BUN 7 mg/dL (7-18) D 05/25/17 06:08 Creatinine 0.9 mg/dL (0.55-1.02) 05/25/17 06:08 Creat Clearance w eGFR > 60 (>60) 05/25/17 06:08 Random Glucose 98 mg/dL (74-106) 05/25/17 06:08 Calcium 8.3 mg/dL (8.5-10.1) L 05/25/17 06:08 Total Bilirubin 0.6 mg/dL (0.2-1.0) 05/25/17 06:08 AST 15 U/L (15-37) 05/25/17 06:08 ALT 19 U/L (12-78) 05/25/17 06:08 Alkaline Phosphatase 96 U/L (45-117) 05/25/17 06:08 Total Protein 6.8 g/dl (6.4-8.2) 05/25/17 06:08 Albumin 3.8 g/dl (3.4-5.0) 05/25/17 06:08 Urine Color Yellow 05/24/17 17:30 Urine Appearance Slcloudy 05/24/17 17:30 Urine pH 5.0 (5.0-8.0) D 05/24/17 17:30 Ur Specific [place] 1.015 (1.005-1.025) 05/24/17 17:30 Urine Protein Negative (NEGATIVE) 05/24/17 17:30 Urine Glucose (UA) Negative (NEGATIVE) 05/24/17 17:30 Urine Ketones Negative (NEGATIVE) 05/24/17 17:30 Urine Blood 1+ (NEGATIVE) H 05/24/17 17:30 Urine Nitrite Negative (NEGATIVE) 05/24/17 17:30 Urine Bilirubin Negative (NEGATIVE) 05/24/17 17:30 Urine Urobilinogen Negative mg/dL (0.2-1.0) 05/24/17 17:30 Ur Leukocyte Esterase Negative (NEGATIVE) 05/24/17 17:30 Urine RBC 2 /hpf (0-3) 05/24/17 17:30 Urine WBC 1 /hpf (3-5) 05/24/17 17:30 Ur Epithelial Cells Rare /hpf (FEW) 05/24/17 17:30 Hyaline Casts 1 /lpf 05/24/17 17:30 Urine Mucus Rare 05/24/17 17:30 RPR Titer Nonreactive (NONREACTIVE) 05/25/17 06:08 HIV 1&2 Antibody Screen Negative 05/24/17 14:25 HIV P24 Antigen Negative 05/24/17 14:25 Labs reviewed Assessment: 05/28/17 13:51 Alcohol and heroin withdrawal symptoms 05/28/17 13:53 Plan: Continue detox Increase oral fluid hydration
[2017-05-28] MEDS: THIAMINE HCL 100 MG TABLET (FP) PO SCH (22:02)
[2017-05-28] MEDS: QUEtiapine FUMARATE 100 MG TABLET (FP) PO SCH (22:03)
[2017-05-28 22:48] VITALS: TEMP 98.4
[2017-05-29] MEDS ORDERED: METHADONE HCL 5 MG TABLET (FOR DETOX USE ONLY) PO SCH (06:00)
[2017-05-29 06:22] VITALS: BP 103/59; PULSE 70
--- NOTE | 2017-05-29 09:24 | DS ---
[facility] Detox Discharge Summary Admission Date: 05/24/17 Discharge Date: 05/29/17 - History Present History: Alcohol Dependence, Cannabis Dependence, Opioid Dependence - Physical Exam Results Vital Signs: Vital Signs Temperature 98.4 F 05/29/17 06:00 Pulse Rate 70 05/29/17 06:00 Respiratory Rate 18 05/29/17 06:00 Blood Pressure 103/59 05/29/17 06:00 O2 Sat by Pulse Oximetry (%) - Treatment Hospital Course: Detox Protocol Followed, Detoxed Safely, Responded well, Discharged Condition Good, Rehab Referral Accepted - Medication Discharge Medications: Ambulatory Orders Aripiprazole [Abilify -] 10 mg PO DAILY #30 tablet 02/07/17 Escitalopram Oxalate [Lexapro -] 5 mg PO DAILY 02/07/17 Quetiapine Fumarate [Seroquel] 100 mg PO HS #30 tablet 02/07/17 - Diagnosis (1) Alcohol dependence with uncomplicated withdrawal Status: Chronic (2) Arthritis of both knees Status: Chronic (3) Cocaine dependence Status: Chronic Qualifiers: Substance use status: uncomplicated Qualified Code(s): F14.20 - Cocaine dependence, uncomplicated; F14.20 - Cocaine dependence, uncomplicated; F14.20 - Cocaine dependence, uncomplicated (4) Drug-induced mood disorder Status: Chronic (5) Low back pain Status: Chronic Qualifiers: Chronicity: chronic (6) Marihuana dependence Status: Chronic (7) Nicotine dependence Status: Chronic Qualifiers: Nicotine product type: cigarettes Substance use status: uncomplicated Qualified Code(s): F17.210 - Nicotine dependence, cigarettes, uncomplicated; F17.210 - Nicotine dependence, cigarettes, uncomplicated (8) Opioid dependence with withdrawal Status: Chronic (9) Weakness of right hand Status: Acute (10) Deformity of right wrist Status: Chronic (11) Schizoaffective disorder Status: Chronic Qualifiers: Schizoaffective disorder type: unspecified Qualified Code(s): F25.9 - Schizoaffective disorder, unspecified; F25.9 - Schizoaffective disorder, unspecified; F25.9 - Schizoaffective disorder, unspecified; F25.9 - Schizoaffective disorder, unspecified (12) Acute conjunctivitis, left eye Status: Acute Qualifiers: Acute conjunctivitis type: unspecified Qualified Code(s): H10.32 - Unspecified acute conjunctivitis, left eye; H10.32 - Unspecified acute conjunctivitis, left eye (13) Non compliance w medication regimen Status: Acute (14) S/P wrist surgery Status: Acute (15) PTSD (post-traumatic stress disorder) Status: Chronic - AMA Did Patient Leave Against Medical Advice: No
== END 2017-05-29 07:49 | disposition home or self-care (01) | DRG 773 ==
LOC: YASAS 08:50 → Y6N 15:06
PROVIDERS: ADMIT Internal Medicine; ATTEND Internal Medicine
PROC: HZ2ZZZZ Detoxification Services for Substance Abuse Treatment (ICD-10-PCS; principal; 2017-05-24)
DX: F11.23 Opioid dependence with withdrawal (principal); F10.230 Alcohol dependence with withdrawal, uncomplicated; F14.20 Cocaine dependence, uncomplicated; F12.20 Cannabis dependence, uncomplicated; F17.210 Nicotine dependence, cigarettes, uncomplicated; F43.10 Post-traumatic stress disorder, unspecified; F19.24 Other psychoactive substance dependence with psychoactive substance-induced mood disorder; M54.5 Low back pain; G89.29 Other chronic pain; H10.32 Unspecified acute conjunctivitis, left eye; M13.862 Other specified arthritis, left knee; M13.861 Other specified arthritis, right knee; M21.831 Other specified acquired deformities of right forearm
CPT/HCPCS: 36415; 80053; 81003; 81015; 85027; 86593; 87389; 90688; 93005; 93010; G0008

== ENCOUNTER 2017-10-14 09:42 | Inpatient (IN) | payer OTHER ==
[2017-10-14 10:17] VITALS: BMI 25.0
[2017-10-14] MEDS ORDERED: MAGNESIUM HYDROX 2400MG/30ML ORAL SUSPENSION 30 ML CUP PO PRN (11:28)
[2017-10-14] MEDS ORDERED: MAGNESIUM CITRATE 300 ML BOTTLE PO PRN (11:28)
[2017-10-14] MEDS ORDERED: guaiFENesin/D-METHORPHAN HB 10 ML UNIT-DOSE CUPS PO PRN (11:28)
[2017-10-14] MEDS ORDERED: MENTHOL/PHENOL 1 EACH UD MM PRN (11:28)
[2017-10-14] MEDS ORDERED: P-EPHED 60MG/TRIPROLIDI 2.5MG TABLET PO PRN (11:28)
[2017-10-14] MEDS ORDERED: LOPERAMIDE HCL 2 MG CAPSULE PO PRN (11:28)
[2017-10-14] MEDS ORDERED: MAG HYDROX/AL HYDROX/SIMETH 30 ML UNIT-DOSE CUP PO PRN (11:28)
[2017-10-14] MEDS ORDERED: ACETAMINOPHEN 325 MG TABLET (FP) PO PRN (11:28)
[2017-10-14] MEDS ORDERED: hydrOXYzine PAMOATE 50 MG CAPSULE (FP) PO PRN (11:28)
[2017-10-14] MEDS ORDERED: IBUPROFEN 400 MG TABLET (FP) PO PRN (11:28)
--- NOTE | 2017-10-14 11:28 | HP ---
[facility] Rehab Assess/Revision - Admission History Admitted to Rehab from: [facility] [place] Date of Admission to Rehab: 10/14/2017 - Vital signs Vital Signs: Vital Signs Period Temp Pulse Resp BP Sys/Porter Pulse Ox Last 24 Hr 97.3 F 84 18 143/108 - Findings Detox History & Physical reviewed: Yes Concur with findings: Yes Inpatient Rehab Admission - Initial Determination Are CD services needed?: Yes Free of communicable disease: Yes Not in need of hospitalization: Yes - Rehab Admission Criteria Comorbidities: Yes Patient is meeting Inpatient Rehab admission criteria:: Yes
[2017-10-14] MEDS: NICOTINE 14 MG/24 HOURS TOPICAL PATCH TD SCH (14:07)
[2017-10-14] MEDS: NICOTINE POLACRILEX 2 MG GUM BUC PRN (14:09)
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
[2017-10-14] MEDS: THIAMINE HCL 100 MG TABLET (FP) PO SCH (21:24)
[2017-10-15] MEDS: NICOTINE POLACRILEX 2 MG GUM BUC PRN ×2 (07:15→18:55)
[2017-10-15] MEDS: PRENATAL VITAMINS W/ FOLIC ACID TABLET (FP) PO SCH (10:04)
[2017-10-15] MEDS: NICOTINE 14 MG/24 HOURS TOPICAL PATCH TD SCH (10:04)
[2017-10-15] MEDS ORDERED: BUPRENORPHINE/NALOXONE 2 MG/0.5 MG FILM PACKET SL ONE (12:01)
--- NOTE | 2017-10-15 12:04 | PN ---
[facility] Progress Note (SOAP) Subjective: c/o oud - protracted withdrawal sx would like to start suboxone Objective: 10/15/17 12:03 Vital Signs - 24 hr 10/14/17 10/15/17 10/15/17 12:48 00:30 06:42 Temperature 98.1 F 97.9 F Pulse Rate 97 H 68 Respiratory 18 16 18 Rate Blood Pressure 114/77 121/81 labs reveiwed Assessment: 10/15/17 12:03 oud, severe, start mat with suboxoen will follow up at [facility] 4mg today, then 8mg daily increase as needed to achieve adequate dose
[2017-10-15] MEDS: NAPROXEN 500 MG TABLET (FP) PO SCH ×2 (13:05→21:37)
[2017-10-15] MEDS: THIAMINE HCL 100 MG TABLET (FP) PO SCH (21:37)
[2017-10-15] MEDS: MELATONIN 5 MG TABLETS PO SCH (22:20)
[2017-10-16] MEDS: NICOTINE POLACRILEX 2 MG GUM BUC PRN ×4 (07:42→20:01)
[2017-10-16] MEDS: NAPROXEN 500 MG TABLET (FP) PO SCH ×2 (09:51→21:24)
[2017-10-16] MEDS: PANTOPRAZOLE 40 MG TABLET (FP) PO SCH (09:51)
[2017-10-16] MEDS: PRENATAL VITAMINS W/ FOLIC ACID TABLET (FP) PO SCH (09:51)
[2017-10-16] MEDS: NICOTINE 14 MG/24 HOURS TOPICAL PATCH TD SCH (09:53)
[2017-10-16] MEDS ORDERED: BUPRENORPHINE/NALOXONE 8 MG/2 MG FILM PACKET SL SCH (10:00)
[2017-10-16] MEDS ORDERED: BUPRENORPHINE/NALOXONE 2 MG/0.5 MG FILM PACKET SL ONE (12:01)
--- NOTE | 2017-10-16 12:03 | PN ---
S Progress Note Note: pateitn c/o OUD with protracted withdrawl sx on current dose of suboxone 8m daily Vital Signs - 24 hr 10/16/17 10/16/17 03:30 07:15 Temperature 97.8 F Pulse Rate 69 Respiratory 18 18 Rate Blood Pressure 138/78 labs reviewed, oud, severe, on mat increase dose to 12mg daily, give additional 4mg today
[2017-10-16] MEDS: MELATONIN 5 MG TABLETS PO SCH (21:24)
[2017-10-16] MEDS: THIAMINE HCL 100 MG TABLET (FP) PO SCH (21:24)
[2017-10-17] MEDS: NICOTINE POLACRILEX 2 MG GUM BUC PRN ×2 (07:25→09:51)
[2017-10-17] MEDS: PANTOPRAZOLE 40 MG TABLET (FP) PO SCH (09:50)
[2017-10-17] MEDS: NAPROXEN 500 MG TABLET (FP) PO SCH ×2 (09:50→21:24)
[2017-10-17] MEDS: PRENATAL VITAMINS W/ FOLIC ACID TABLET (FP) PO SCH (09:50)
[2017-10-17] MEDS: NICOTINE 14 MG/24 HOURS TOPICAL PATCH TD SCH (09:50)
[2017-10-17] MEDS ORDERED: BUPRENORPHINE HCL/NALOXONE 12 MG-3 MG SL FILM PACKET SL SCH (10:00)
--- NOTE | 2017-10-17 13:53 | PN ---
[facility] Progress Note Note: Patient c/o protracted withdrawal, body aches, shakes and difficulty sleeping Vital Signs Temperature 97.4 F L 10/17/17 06:42 Pulse Rate 66 10/17/17 06:42 Respiratory Rate 18 10/17/17 06:42 Blood Pressure 134/85 10/17/17 06:42 O2 Sat by Pulse Oximetry (%) ROS: General: anxious, and difficulty sleeping HR: denies no chest pain, palpitations, SOB Neuro: denies dizziness, or paresthesia, + shaky Endo: sweats Musc: denies stiffness or pain Assessment: GENERAL APPEARANCE: Well developed, well nourished, alert and cooperative, and appears to be in no acute distress. CARDIAC: Normal S1 and S2. No S3, S4 or murmurs. Rhythm is regular. No edema LUNGS: Clear to auscultation and percussion without rales, rhonchi, wheezing or diminished breath sounds. MUSKULOSKELETAL: ROM intact spine and extremities. No joint erythema or tenderness. Normal muscular development. Normal gait. +generalize body aches NEUROLOGICAL: CN II-XII intact. Plan: Increase fluids Increase Suboxone 16 mg on 10/18/17 Clonide 0.1mg Once Flexeril 5mg TID Continue to monitor
[2017-10-17] MEDS: CYCLOBENZAPRINE HCL 5 MG TABLET PO SCH ×2 (14:08→21:24)
[2017-10-17] MEDS ORDERED: cloNIDine HCL 0.1 MG TABLET PO ONE (17:00)
[2017-10-17] MEDS: MELATONIN 5 MG TABLETS PO SCH (21:24)
[2017-10-17] MEDS: THIAMINE HCL 100 MG TABLET (FP) PO SCH (21:24)
[2017-10-18] MEDS: CYCLOBENZAPRINE HCL 5 MG TABLET PO SCH ×3 (06:57→21:21)
[2017-10-18] MEDS: BUPRENORPHINE/NALOXONE 8 MG/2 MG FILM PACKET SL SCH (10:15)
[2017-10-18] MEDS: PANTOPRAZOLE 40 MG TABLET (FP) PO SCH (10:15)
[2017-10-18] MEDS: NAPROXEN 500 MG TABLET (FP) PO SCH ×2 (10:15→21:22)
[2017-10-18] MEDS: PRENATAL VITAMINS W/ FOLIC ACID TABLET (FP) PO SCH (10:15)
[2017-10-18] MEDS: NICOTINE 14 MG/24 HOURS TOPICAL PATCH TD SCH (10:17)
[2017-10-18] MEDS: NICOTINE POLACRILEX 2 MG GUM BUC PRN ×2 (11:02→19:09)
[2017-10-18] MEDS: THIAMINE HCL 100 MG TABLET (FP) PO SCH (21:21)
[2017-10-18] MEDS: MELATONIN 5 MG TABLETS PO SCH (21:21)
[2017-10-19] MEDS: CYCLOBENZAPRINE HCL 5 MG TABLET PO SCH ×3 (06:26→21:17)
[2017-10-19] MEDS: NICOTINE POLACRILEX 2 MG GUM BUC PRN ×2 (06:26→09:55)
[2017-10-19] MEDS: NICOTINE 14 MG/24 HOURS TOPICAL PATCH TD SCH (09:53)
[2017-10-19] MEDS: NAPROXEN 500 MG TABLET (FP) PO SCH ×2 (09:54→21:17)
[2017-10-19] MEDS: PANTOPRAZOLE 40 MG TABLET (FP) PO SCH (09:54)
[2017-10-19] MEDS: PRENATAL VITAMINS W/ FOLIC ACID TABLET (FP) PO SCH (09:54)
[2017-10-19] MEDS: BUPRENORPHINE/NALOXONE 8 MG/2 MG FILM PACKET SL SCH (09:54)
[2017-10-19] MEDS: THIAMINE HCL 100 MG TABLET (FP) PO SCH (21:17)
[2017-10-19] MEDS: MELATONIN 5 MG TABLETS PO SCH (21:17)
[2017-10-20] MEDS: CYCLOBENZAPRINE HCL 5 MG TABLET PO SCH ×3 (06:50→21:20)
[2017-10-20] MEDS: NICOTINE POLACRILEX 2 MG GUM BUC PRN ×2 (06:51→13:14)
[2017-10-20] MEDS: PRENATAL VITAMINS W/ FOLIC ACID TABLET (FP) PO SCH (09:22)
[2017-10-20] MEDS: NICOTINE 14 MG/24 HOURS TOPICAL PATCH TD SCH (09:22)
[2017-10-20] MEDS: NAPROXEN 500 MG TABLET (FP) PO SCH ×2 (09:22→21:20)
[2017-10-20] MEDS: PANTOPRAZOLE 40 MG TABLET (FP) PO SCH (09:22)
[2017-10-20] MEDS: BUPRENORPHINE/NALOXONE 8 MG/2 MG FILM PACKET SL SCH (09:23)
[2017-10-20] MEDS: MELATONIN 5 MG TABLETS PO SCH (21:19)
[2017-10-20] MEDS: THIAMINE HCL 100 MG TABLET (FP) PO SCH (21:20)
[2017-10-21] MEDS: CYCLOBENZAPRINE HCL 5 MG TABLET PO SCH (06:49)
[2017-10-21] MEDS: NICOTINE POLACRILEX 2 MG GUM BUC PRN (06:49)
[2017-10-21 07:16] VITALS: BP 146/76; PULSE 83; TEMP 98.1
[2017-10-21] MEDS: NAPROXEN 500 MG TABLET (FP) PO SCH (09:20)
[2017-10-21] MEDS: NICOTINE 14 MG/24 HOURS TOPICAL PATCH TD SCH (09:20)
[2017-10-21] MEDS: PRENATAL VITAMINS W/ FOLIC ACID TABLET (FP) PO SCH (09:20)
[2017-10-21] MEDS: PANTOPRAZOLE 40 MG TABLET (FP) PO SCH (09:20)
[2017-10-21] MEDS: BUPRENORPHINE/NALOXONE 8 MG/2 MG FILM PACKET SL SCH (09:20)
--- NOTE | 2017-10-21 09:57 | PN ---
Psychiatric Progress Note Vital Signs: Vital Signs Period Temp Pulse Resp BP Sys/Porter Pulse Ox Last 24 Hr 98.1 F 83 16-18 146/76 Date of Session: 10/21/17 Chief Complaint:: Discharge visit. HPI: Patient addressed Alcohol,Opioid,Cocaine and Cannabis dependence comorbid with Schizioaffective disorder,PTSD. Current Medications: Active Medications Generic Name Dose Route Start Last Admin Trade Name Freq PRN Reason Stop Dose Admin Acetaminophen 650 mg 10/14/17 11:28 Tylenol - PO Q4H PRN FEVER Al Hydroxide/Mg Hydroxide 30 ml 10/14/17 11:28 Mylanta Oral Suspension - PO Q6H PRN DYSPEPSIA Buprenorphine/Naloxone 2 each 10/18/17 10:00 10/21/17 09:20 Suboxone 8mg/2mg Sl Film - SL 10/24/17 09:59 2 each DAILY GI Administration Cyclobenzaprine HCl 5 mg 10/17/17 14:00 10/21/17 06:49 Cyclobenzaprine Hcl PO 5 mg TID GI Administration Eucalyptus/Menthol/Phenol/Sorbitol 1 each 10/14/17 11:28 Cepastat Lozenge - MM Q4H PRN SORE THROAT Guaifenesin 10 ml 10/14/17 11:28 Robitussin Dm - PO Q6H PRN COUGH Hydroxyzine Pamoate 50 mg 10/14/17 11:28 Vistaril - PO Q4H PRN AGITATION Loperamide HCl 4 mg 10/14/17 11:28 Imodium - PO Q6H PRN DIARRHEA Magnesium Citrate 300 ml 10/14/17 11:28 Citroma - PO Q48H PRN CONSTIPATION Magnesium Hydroxide 30 ml 10/14/17 11:28 Milk Of Magnesia - PO DAILY PRN CONSTIPATION Melatonin 5 mg 10/15/17 22:00 10/20/17 21:19 Melatonin PO 5 mg HS GI Administration Naproxen 500 mg 10/15/17 12:15 10/21/17 09:20 Naprosyn - PO 500 mg BID GI Administration Nicotine 14 mg 10/14/17 11:55 10/21/17 09:20 Nicoderm Patch - TD Not Given DAILY GI Nicotine Polacrilex 2 mg 10/14/17 11:28 10/21/17 06:49 Nicorette Gum - BUC 2 mg Q2H PRN Administration NICOTINE REPLACEMENT RX Pantoprazole Sodium 40 mg 10/16/17 10:00 10/21/17 09:20 Protonix - PO 40 mg DAILY GI Administration Multivit/Folic Acid/Iron 1 tab 10/15/17 10:00 10/21/17 09:20 Vitamins (Sjr) - PO 1 tab DAILY GI Administration Pseudoephedrine/Triprolidine 1 combo 10/14/17 11:28 Actifed - PO TID PRN NASAL CONGESTION Thiamine HCl 100 mg 10/14/17 22:00 10/20/17 21:20 Vitamin B1 - PO 100 mg HS GI Administration Current Side Effect: No Lab tests ordered: No Lab tests reviewed: Yes Provider note:: Patient completed 7 days (early discharge).She has partially met her treatment goals and will continue to address her issues on outpatient basis at [facility] program.Patient reports finding that currently she doesnt need psychopharmacological intervention,and she is willing to restart psychotropic medications as needed. patient identifies areas of difficulties and ways ,resourses to utilize to maintain recovery. Supportive therapy provided focusing on relapse prevention. Patient is stable for discharge today. Total face to face time:: 30 Mental Status Exam - Mental Status Exam Alert and Oriented to: Time, Place, Person Cognitive Function: Grossly Intact Patient Appearance: Well Groomed Mood: Euthymic Affect: Normal Range Patient Behavior: Cooperative Speech Pattern: Clear Voice Loudness: Normal Thought Process: Goal Oriented Thought Disorder: Being Controlled Hallucinations: Denies Suicidal Ideation: Denies Homicidal Ideation: Denies Insight/Judgement: Fair Sleep: Fair Appetite: Good Muscle strength/Tone: Normal Gait/Station: Normal Psychiatric Treatment Plan - Problem List (1) Alcohol dependence Current Visit: Yes Qualifiers: Substance use status: uncomplicated Qualified Code(s): F10.20 - Alcohol dependence, uncomplicated (2) Opioid dependence Current Visit: Yes Qualifiers: Substance use status: uncomplicated Qualified Code(s): F11.20 - Opioid dependence, uncomplicated (3) S/P wrist surgery Current Visit: Yes (4) Weakness of right hand Current Visit: Yes (5) Cannabis dependence Current Visit: Yes (6) Cocaine dependence Current Visit: Yes (7) Nicotine dependence Current Visit: Yes Qualifiers: Nicotine product type: cigarettes (8) PTSD (post-traumatic stress disorder) Current Visit: Yes (9) Schizoaffective disorder Current Visit: Yes Qualifiers: Schizoaffective disorder type: unspecified Qualified Code(s): F25.9 - Schizoaffective disorder, unspecified Comment: History as per self-report.
== END 2017-10-21 10:50 | disposition home or self-care (01) | DRG 772 ==
LOC: YASAS 09:42 → Y3E 11:42
PROVIDERS: ADMIT Psychiatry & Neurology Psychiatry; ATTEND Psychiatry & Neurology Psychiatry
PROC: HZ42ZZZ Group Counseling for Substance Abuse Treatment, Cognitive-Behavioral (ICD-10-PCS; principal; 2017-10-14)
DX: F11.23 Opioid dependence with withdrawal (principal); F10.230 Alcohol dependence with withdrawal, uncomplicated; F14.20 Cocaine dependence, uncomplicated; F12.20 Cannabis dependence, uncomplicated; F17.210 Nicotine dependence, cigarettes, uncomplicated; F43.10 Post-traumatic stress disorder, unspecified; F25.9 Schizoaffective disorder, unspecified; F19.24 Other psychoactive substance dependence with psychoactive substance-induced mood disorder; M62.81 Muscle weakness (generalized); M54.5 Low back pain; G89.29 Other chronic pain
CPT/HCPCS: J0735

== ENCOUNTER 2018-01-15 08:05 | Inpatient (IN) | payer OTHER ==
[2018-01-15 09:42] VITALS: BMI 25.2
--- NOTE | 2018-01-15 10:29 | HP ---
COWS - Scale Resting Pulse: 1= NE 81-100 Sweatin=Flushed/Facial Moisture Restless Observation: 1= Difficult to Sit Still Pupil Size: 0= Normal to Room Light Bone or Joint Aches: 2= Severe Diffuse Aches Runny Nose/ Eye Tearin= Runny Nose/Eyes GI Upset > 30mins: 2= Nausea/Diarrhea Tremor Observation: 1= Tremor [place], Not Seen Yawning Observation: 0= None Anxiety or Irritability: 2=Irritable/Anxious Goose Flesh Skin: 0=Smooth Skin COWS Score: 13 CIWA Score - CIWA Score Nausea/Vomitin Muscle Tremors: 1-None Visible, but [place] Anxiety: 2 Agitation: 1-Slight > Activity Paroxysmal Sweats: 2 Orientation: 0-Oriented Tacttile Disturbances: 0-None Auditory Disturbances: 1-Very Mild Visual Disturbances: 0-None Headache: 3-Moderate CIWA-Ar Total Score: 12 Admission ROS S - HPI Chief Complaint: Heroin/Etoh withdrawal symptoms Allergies/Adverse Reactions: Allergies Allergy/AdvReac Type Severity Reaction Status Date / Time No Known Allergies Allergy Verified 01/15/18 09:30 History of Present Illness: PATIENT PRESENTS WITH ETOH/HEROIN WITHDRAWAL SYMPTOMS. PATIENT LAST DETOX WAS HERE AT [facility]. PATIENT RELAPSED 2 WEEKS AFTER DISCHARGE. PATIENT STARTED DRINKING BEER AT AGE 16. DRINKS UP 6 CANS DAILY. LAST DRINK WAS THIS MORNING. DENIES HAVING SEIZURES FROM ETOH USE/WITHDRAWAL. STARTED USING HEROIN AT AGE 30. SNIFFS UP TO 10 BAGS DAILY. LAST TIME USED WAS THIS MORNING. DENIES SMOKING MARIJUANA AND STATES SOMETIMES HEROIN HAS OTHER SUBSTANCES MIXED IN. PMH INCLUDES DEPRESSION AND ANXIETY. DENIES SI/HI AND SUICIDE ATTEMPTS. Exam Limitations: No Limitations - Ebola screening Have you traveled outside of the country in the last 21 days: No Have you had contact with anyone from an Ebola affected area: No Have you been sick,other than usual withdrawal symptoms: No Do you have a fever: No - Review of Systems Constitutional: Chills, Night Sweats, Changes in sleep, Unexplained wgt Loss EENT: reports: Tearing, Nose Congestion Respiratory: reports: No Symptoms reported Cardiac: reports: No Symptoms Reported GI: reports: Diarrhea, Nausea, Poor Appetite, Poor Fluid Intake, Abdominal cramping : reports: No Symptoms Reported Musculoskeletal: reports: Joint Pain, Muscle Pain Integumentary: reports: Sweating Neuro: reports: No Symptoms reported Endocrine: reports: Unexplained Weight Loss Hematology: reports: No Symptoms Reported Psychiatric: reports: Orientated x3, Anxious, Depressed Patient History - Patient Medical History Hx Anemia: No Hx Asthma: No Hx Chronic Obstructive Pulmonary Disease (COPD): No Hx Cancer: No Hx Cardiac Disorders: No Hx Congestive Heart Failure: No Hx Hypertension: No Hx Hypercholesterolemia: No Hx Pacemaker: No HX Cerebrovascular Accident: No Hx Seizures: No Hx Dementia: No Hx Diabetes: No Hx Gastrointestinal Disorders: No Hx Liver Disease: No Hx Genitourinary Disorders: No Hx Sexually Transmitted Disorders: No Hx Renal Disease (ESRD): No Hx Thyroid Disease: No Hx Human Immunodeficiency Virus (HIV): No (Last Tested: 05/14: NEGATIVE.) Hx Hepatitis C: No (Uncertain if Ever Tested.) Hx Depression: Yes Hx Suicide Attempt: No Hx Bipolar Disorder: Yes (On meds.) Hx Schizophrenia: Yes (schizoaffective disorder) - Patient Surgical History Past Surgical History: Yes Hx Neurologic Surgery: No Hx Cataract Extraction: No Hx Cardiac Surgery: No Hx Lung Surgery: No Hx Breast Surgery: No Hx Breast Biopsy: No Hx Abdominal Surgery: No Hx Appendectomy: No Hx Cholecystectomy: No Hx Genitourinary Surgery: No Hx Section: No Hx Orthopedic Surgery: Yes (ambulatory surgery R wrist in 2015: Tendon Tear, Unkown etiology.) Other Surgical History: Patient has had limited use of Right hand for 2 yrs since surgery. Anesthesia Reaction: No - PPD History Previous Implant?: Yes Documented Results: Negative w/proof Implanted On Prior [facility] Admission?: Yes Date: 02/09/17 Results: 0 mm PPD to be Administered?: No - Reproductive History Last Menstrual Period: 01/02/18 Patient : No - Smoking Cessation Smoking history: Current every day smoker Have you smoked in the past 12 months: Yes Aproximately how many cigarettes per day: 5 Cigars Per Day: 0 Hx Chewing Tobacco Use: No Initiated information on smoking cessation: Yes 'Breaking Loose' booklet given: 01/15/18 - Substance & Tx. History Hx Alcohol Use: Yes Hx Substance Use: Yes Substance Use Type: Alcohol, Heroin Hx Substance Use Treatment: Yes - Substances Abused Heroin Route: Inhalation Frequency: Daily Amount used: 10 bags Age of first use: 30 Date of Last Use: 06/20/18 Alcohol-beer Route: Oral Frequency: Daily Amount used: 1-6 pk. Age of first use: 16 Date of Last Use: 01/15/18 Family Disease History - Family Disease History Family Disease History: Diabetes: Grandparent (lung/brain), Heart Disease: Mother (htn, PE), CA: Grandparent, Other: Father (substance use) Admission Physical Exam [facility] - Vital Signs Vital Signs: Vital Signs - 24 hr 01/15/18 09:30 Temperature 98.5 F Pulse Rate 98 H Respiratory 20 Rate Blood Pressure 130/76 - Physical General Appearance: Yes: No Apparent Distress, Appropriately Dressed, Tremorous , Sweating, Anxious HEENTM: Yes: EOMI, Hearing grossly Normal, Normocephalic, Normal Voice, JUDY, Pharynx Normal, Nasal Congestion Respiratory: Yes: Chest Non-Tender, Lungs Clear, Normal Breath Sounds, No Respiratory Distress, No Accessory Muscle Use Neck: Yes: No masses,lesions,Nodules, Supple Breast: Yes: Breast Exam Deferred Cardiology: Yes: Regular Rhythm, Regular Rate, S1, S2 Abdominal: Yes: Normal Bowel Sounds, Non Tender, Soft Genitourinary: Yes: Within Normal Limits Back: Yes: Normal Inspection, Muscle Spasm Musculoskeletal: Yes: full range of Motion, Gait Steady, Back pain, Muscle Pain Extremities: Yes: Normal Inspection, Normal Range of Motion, Non-Tender, Tremors Neurological: Yes: teacher of the emotionally disturbed II-XII NML intact, Fully Oriented, Alert, Motor Strength 5/5, Depressed Affect Integumentary: Yes: Normal Color, Warm, Moist Lymphatic: Yes: Within Normal Limits - Diagnostic (1) Alcohol dependence with uncomplicated withdrawal Current Visit: Yes Status: Acute (2) Opioid dependence with withdrawal Current Visit: Yes Status: Acute (3) Cannabis dependence Current Visit: No Status: Chronic (4) Nicotine dependence Current Visit: Yes Status: Chronic Qualifiers: Nicotine product type: cigarettes Substance use status: uncomplicated Qualified Code(s): F17.210 - Nicotine dependence, cigarettes, uncomplicated (5) History of depression Current Visit: Yes Status: Chronic (6) History of schizoaffective disorder Current Visit: Yes Status: Chronic Cleared for Admission [facility] - Detox or Rehab [facility] Level of Care: Medically Managed Detox Regimen/Protocol: Methadone/Librium [facility] Breath Alcohol Content Breath Alcohol Content: 0.022 Urine Pregancy Test - Result Urine Test Results: Negative- NO Line Present Urine Drug Screen - Results Drug Screen Negative: No Urine Drug Screen Results: THC-Marijuana, OPI-Opiates, MTD-Methadone
[2018-01-15] MEDS ORDERED: MENTHOL/PHENOL 1 EACH UD MM PRN (10:37)
[2018-01-15] MEDS ORDERED: guaiFENesin/D-METHORPHAN HB 10 ML UNIT-DOSE CUPS PO PRN (10:37)
[2018-01-15] MEDS ORDERED: chlordiazePOXIDE HCL 25 MG CAPSULE PO PRN (10:37)
[2018-01-15] MEDS ORDERED: hydrOXYzine PAMOATE 50 MG CAPSULE (FP) PO PRN (10:37)
[2018-01-15] MEDS ORDERED: MAG HYDROX/AL HYDROX/SIMETH 30 ML UNIT-DOSE CUP PO PRN (10:37)
[2018-01-15] MEDS ORDERED: ACETAMINOPHEN 325 MG TABLET (FP) PO PRN (10:37)
[2018-01-15] MEDS ORDERED: P-EPHED 60MG/TRIPROLIDI 2.5MG TABLET PO PRN (10:37)
[2018-01-15] MEDS ORDERED: LOPERAMIDE HCL 2 MG CAPSULE PO PRN (10:37)
[2018-01-15] MEDS ORDERED: MAGNESIUM CITRATE 300 ML BOTTLE PO PRN (10:37)
[2018-01-15] MEDS ORDERED: MAGNESIUM HYDROX 2400MG/30ML ORAL SUSPENSION 30 ML CUP PO PRN (10:37)
[2018-01-15] MEDS ORDERED: chlordiazePOXIDE HCL 25 MG CAPSULE PO ONE (11:45)
[2018-01-15] MEDS ORDERED: METHADONE HCL 10 MG TABLET (FOR DETOX USE ONLY) PO ONE ×2 (11:45→23:00)
--- NOTE | 2018-01-15 11:48 | CONSULT ---
[facility] Psychiatric Consult - Data Date of interview: 01/15/18 Admission source: [facility] Identifying data: This is 47 years old female , single, living alone, on SSI, unemployed, with history of Schizoaffectiv disorder, Bipolar disorder, with no psychiatric hospitalization history, reports abusing Alcohol, Heroin and Nicotine, urine test positive for Cannabis as well,. Patient reports withdrawal symptoms amd seeking for detox. Substance Abuse History: Smoking history: Current every day smoker. Have you smoked in the past 12 months: Yes. Aproximately how many cigarettes per day: 5. Cigars Per Day: 0. Hx Chewing Tobacco Use: No. Initiated information on smoking cessation: Yes. 'Breaking Loose' booklet given: 01/15/18. - Substance & Tx. History. Hx Alcohol Use: Yes. Hx Substance Use: Yes. Substance Use Type : Alcohol, Heroin. Hx Substance Use Treatment: Yes. - Substances Abused. Heroin. Route: Inhalation. Frequency: Daily. Amount used: 10 bags. Age of first use: 30. Date of Last Use: 01/15/18. Alcohol-beer. Route: Oral. Frequency: Daily. Amount used: 1-6 pk. Age of first use: 16. Date of Last Use : 01/15/18 Medical History: Denies significant medical history, as per computer: s/p right hand surgery, LBP, Psychiatric History: Patient reports history of Bipolar Disorder,. Schizoaffective disorder, with no history psychiatric hospitalizations, reports taking prior to admission: Seroquel 100mg po qhs. Lexaoro 5mg poqd Physical/Sexual Abuse/Trauma History: Denies Additional Comment: Seroquel 100mg po qhs. Lexaoro 5mg poqd Mental Status Exam - Mental Status Exam Alert and Oriented to: Place, Person Cognitive Function: Fair Patient Appearance: Well Groomed Mood: Anxious Affect: Mood Congruent Patient Behavior: Cooperative Speech Pattern: Appropriate Voice Loudness: Normal Thought Process: Goal Oriented Thought Disorder: Being Controlled Hallucinations: Denies Suicidal Ideation: Denies Homicidal Ideation: Denies Sleep: Fair Appetite: Fair Muscle strength/Tone: Normal Gait/Station: Normal Additional Comments: Seroquel 100mg po qhs. Lexaoro 5mg poqd Psychiatric Findings - Problem List ([place] 1, 2,3) (1) Alcohol dependence with uncomplicated withdrawal Current Visit: Yes Status: Acute (2) Opioid dependence with withdrawal Current Visit: Yes Status: Acute (3) History of schizoaffective disorder Current Visit: Yes Status: Chronic (4) Nicotine dependence Current Visit: Yes Status: Chronic Qualifiers: Nicotine product type: cigarettes Substance use status: uncomplicated Qualified Code(s): F17.210 - Nicotine dependence, cigarettes, uncomplicated (5) Cocaine dependence Current Visit: No Status: Acute (6) Non compliance w medication regimen Current Visit: No Status: Acute (7) Alcohol dependence Current Visit: No Status: Chronic Qualifiers: Substance use status: uncomplicated Qualified Code(s): F10.20 - Alcohol dependence, uncomplicated (8) Cannabis dependence Current Visit: No Status: Chronic (9) Cocaine dependence Current Visit: No Status: Chronic Qualifiers: Substance use status: in remission Qualified Code(s): F14.21 - Cocaine dependence, in remission (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 Lexaoro 5mg poqd
[2018-01-15] MEDS: chlordiazePOXIDE HCL 25 MG CAPSULE PO SCH ×3 (12:36→22:06)
[2018-01-15] MEDS: ESCITALOPRAM OXALATE 10 MG TABLET (FP) PO SCH (12:37)
[2018-01-15] MEDS: NICOTINE POLACRILEX 2 MG GUM BUC PRN (13:49)
[2018-01-15 16:42] LABS: URINE APPEARANCE CLOUDY; URINE BILIRUBIN NEGATIVE (<2.0 mg/dL); URINE COLOR YELLOW; URINE GLUCOSE (UA) NEGATIVE (NEGATIVE); URINE KETONE NEGATIVE (NEGATIVE); URINE NITRITE NEGATIVE (NEGATIVE); URINE PROTEIN NEGATIVE (NEGATIVE); URINE UROBILINOGEN 4.0 E.U/dl mg/dL (0.2-1.0)
[2018-01-15 16:43] LABS: URINE LEUK ESTERASE 2+ (NEGATIVE)
[2018-01-15 17:02] LABS: EPI CELLS MANY /HPF (FEW); URINE BACTERIA RARE /hpf (NONE SEEN); URINE HYALINE CAST 4 /lpf; URINE MUCUS RARE
[2018-01-15] MEDS ORDERED: MELATONIN 5 MG TABLETS PO PRN (22:00)
[2018-01-15] MEDS: QUEtiapine FUMARATE 100 MG TABLET (FP) PO SCH (22:06)
[2018-01-15] MEDS: THIAMINE HCL 100 MG TABLET (FP) PO SCH (22:06)
[2018-01-16] MEDS: chlordiazePOXIDE HCL 25 MG CAPSULE PO SCH ×4 (06:02→22:29)
--- NOTE | 2018-01-16 08:43 | PN ---
[facility] CIWA - CIWA Score Nausea/Vomitin-Mild Nausea/No Vomiting Muscle Tremors: 3 Anxiety: 2 Agitation: 2 Paroxysmal Sweats: 1-Minimal Palms Moist Orientation: 1-Uncertain about Date Tacttile Disturbances: 1-Very Mild Itch/Numbness Auditory Disturbances: 0-None Visual Disturbances: 0-None Headache: 0-None Present CIWA-Ar Total Score: 11 [facility] COWS - Scale Resting Pulse: 0= [place] 80 or Below Sweatin= Chills/Flushing Restless Observation: 1= Difficult to Sit Still Pupil Size: 0= Normal to Room Light Bone or Joint Aches: 2= Severe Diffuse Aches Runny Nose/ Eye Tearin= Nasal Congestion GI Upset > 30mins: 2= Nausea/Diarrhea Tremor Observation of Outstretched Hands: 2= Slight Tremor Visible Yawning Observation: 1= 1-2x During Session Anxiety or Irritability: 2=Irritable/Anxious Goose Flesh Skin: 0=Smooth Skin COWS Score: 12 [facility] Progress Note (SOAP) Subjective: joints pain sweat tremor anxiety body aches trouble sleep at night Objective: 01/16/18 08:42 Vital Signs Temperature 97.9 F 01/16/18 06:53 Pulse Rate 72 01/16/18 06:53 Respiratory Rate 18 01/16/18 06:53 Blood Pressure 110/74 01/16/18 06:53 O2 Sat by Pulse Oximetry (%) Laboratory Last Values Urine Color Yellow 01/15/18 14:05 Urine Appearance Cloudy 01/15/18 14:05 Urine pH 5.0 (5.0-8.0) 01/15/18 14:05 Ur Specific [place] 1.011 (1.001-1.035) 01/15/18 14:05 Urine Protein Negative (NEGATIVE) 01/15/18 14:05 Urine Glucose (UA) Negative (NEGATIVE) 01/15/18 14:05 Urine Ketones Negative (NEGATIVE) 01/15/18 14:05 Urine Blood 1+ (NEGATIVE) H 01/15/18 14:05 Urine Nitrite Negative (NEGATIVE) 01/15/18 14:05 Urine Bilirubin Negative (<2.0 mg/dL) 01/15/18 14:05 Urine Urobilinogen 4.0 e.u/dl mg/dL (0.2-1.0) H 01/15/18 14:05 Ur Leukocyte Esterase 2+ (NEGATIVE) H 01/15/18 14:05 Urine WBC (Auto) 17 /hpf (3-5) 01/15/18 14:05 Urine RBC (Auto) 5 /hpf (0-3) 01/15/18 14:05 Ur Epithelial Cells Many /HPF (FEW) 01/15/18 14:05 Urine Bacteria Rare /hpf (NONE SEEN) 01/15/18 14:05 Hyaline Casts 4 /lpf 01/15/18 14:05 Urine Mucus Rare 01/15/18 14:05 lab noted personal hygiene Assessment: 01/16/18 08:42 opiate and alcohol withdrawal sx Plan: continue detox with supportive regimen
[2018-01-16 09:55] LABS: RDW 13.4 % (11.6-15.6)
[2018-01-16 09:57] LABS: HEMATOCRIT 37.9 % (32.4-45.2); HEMOGLOBIN 12.5 GM/dL (10.7-15.3); MCH 33.1 pg (25.7-33.7); MCHC 32.9 g/dl (32.0-36.0); MEAN CELL VOLUME 100.6 fl (80-96); MEAN PLT VOLUME 9.5 fl (7.5-11.1); PLATELET COUNT 261 K/MM3 (134-434); RBC 3.77 M/mm3 (3.60-5.2); WHITE BLOOD COUNT 16.6 K/mm3 (4.0-10.0)
[2018-01-16] MEDS ORDERED: METHADONE HCL 10 MG TABLET (FOR DETOX USE ONLY) PO SCH (10:00)
[2018-01-16] MEDS: ESCITALOPRAM OXALATE 10 MG TABLET (FP) PO SCH (10:36)
[2018-01-16] MEDS: PRENATAL VITAMINS W/ FOLIC ACID TABLET (FP) PO SCH (10:36)
[2018-01-16 10:45] LABS: CHLORIDE 100 mmol/L (98-107); POTASSIUM 3.8 mmol/L (3.5-5.1); SODIUM 139 mmol/L (136-145)
[2018-01-16 11:06] LABS: ALBUMIN 3.7 g/dl (3.4-5.0); ALK PHOS 104 U/L (45-117); ANION GAP 11 (8-16); BILIRUBIN,TOTAL 0.4 mg/dL (0.2-1.0); BLOOD UREA NITROGEN 12 mg/dL (7-18); CALCIUM 8.8 mg/dL (8.5-10.1); CO2 28 mmol/L (21-32); CREATININE 0.9 mg/dL (0.55-1.02); GLUCOSE,RANDOM 83 mg/dL (74-106); SGOT/AST 22 U/L (15-37); SGPT/ALT 35 U/L (12-78); TOT PROT 6.8 g/dl (6.4-8.2)
--- NOTE | 2018-01-16 12:01 | EKG ---
Test Reason : Blood Pressure : / mmHG Vent. Rate : 089 BPM Atrial Rate : 089 BPM P-R Int : 130 ms QRS Dur : 076 ms QT Int : 372 ms P-R-T Axes : 063 018 039 degrees QTc Int : 452 ms NORMAL SINUS RHYTHM NORMAL ECG WHEN COMPARED WITH ECG OF 08-OCT-2017 14:36, NO SIGNIFICANT CHANGE WAS FOUND Confirmed by NEREYDA BROOKS MD ([id number]) on 01/16/2018 12:01:29 PM Referred By: Confirmed By:NEREYDA BROOKS MD
[2018-01-16] MEDS: NICOTINE POLACRILEX 2 MG GUM BUC PRN (16:37)
[2018-01-16] MEDS: IBUPROFEN 400 MG TABLET (FP) PO PRN ×2 (16:40→22:29)
[2018-01-16] MEDS: QUEtiapine FUMARATE 100 MG TABLET (FP) PO SCH (22:29)
[2018-01-16] MEDS: THIAMINE HCL 100 MG TABLET (FP) PO SCH (22:29)
[2018-01-17] MEDS: chlordiazePOXIDE HCL 25 MG CAPSULE PO SCH (05:41)
[2018-01-17] MEDS: PRENATAL VITAMINS W/ FOLIC ACID TABLET (FP) PO SCH (10:32)
[2018-01-17] MEDS: chlordiazePOXIDE 5 MG CAPSULE PO SCH ×3 (10:32→22:25)
[2018-01-17] MEDS: ESCITALOPRAM OXALATE 10 MG TABLET (FP) PO SCH (10:33)
[2018-01-17] MEDS: METHADONE HCL 5 MG TABLET (FOR DETOX USE ONLY) PO SCH (10:33)
[2018-01-17] MEDS: NICOTINE POLACRILEX 2 MG GUM BUC PRN (12:48)
--- NOTE | 2018-01-17 13:03 | PN ---
[facility] CIWA - CIWA Score Nausea/Vomitin-No Nausea/No Vomiting Muscle Tremors: 4-Moderate,w/Arms Extend Anxiety: 4-Mod. Anxious/Guarded Agitation: 4-Moderately Restless Paroxysmal Sweats: 1-Minimal Palms Moist Orientation: 0-Oriented Tacttile Disturbances: 0-None Auditory Disturbances: 0-None Visual Disturbances: 0-None Headache: 0-None Present CIWA-Ar Total Score: 13 [facility] COWS - Scale Resting Pulse: 1= [place] 81-100 Sweatin= Chills/Flushing Restless Observation: 3= Extraneous Movement Pupil Size: 0= Normal to Room Light Bone or Joint Aches: 4=Acute Joint/Muscle Pain Runny Nose/ Eye Tearin= Nasal Congestion GI Upset > 30mins: 0= None Tremor Observation of Outstretched Hands: 1= Tremor [place], Not Seen Yawning Observation: 1= 1-2x During Session Anxiety or Irritability: 2=Irritable/Anxious Goose Flesh Skin: 0=Smooth Skin COWS Score: 14 [facility] Progress Note (SOAP) Subjective: ANXIETY,SWEATS,DETOX PROCEEDINMG WELL. Objective: 01/17/18 13:01 Vital Signs 01/17/18 01/17/18 06:00 10:37 Temperature 97.7 F 96.5 F L Pulse Rate 89 89 Respiratory 18 16 Rate Blood Pressure 105/55 120/66 Laboratory Tests 01/15/18 01/15/18 01/16/18 11:30 14:05 06:00 WBC 16.6 H D RBC 3.77 Hgb 12.5 Hct 37.9 MCV 100.6 H MCH 33.1 MCHC 32.9 RDW 13.4 Plt Count 261 MPV 9.5 Sodium Potassium Chloride Carbon Dioxide Anion Gap BUN Creatinine Creat Clearance w eGFR Random Glucose Calcium Total Bilirubin AST ALT Alkaline Phosphatase Total Protein Albumin Urine Color Yellow Urine Appearance Cloudy Urine pH 5.0 Ur Specific [place] 1.011 Urine Protein Negative Urine Glucose (UA) Negative Urine Ketones Negative Urine Blood 1+ H Urine Nitrite Negative Urine Bilirubin Negative Urine Urobilinogen 4.0 e.u/dl H Ur Leukocyte Esterase 2+ H Urine WBC (Auto) 17 Urine RBC (Auto) 5 Ur Epithelial Cells Many Urine Bacteria Rare Hyaline Casts 4 Urine Mucus Rare RPR Titer HIV 1&2 Antibody Screen Negative HIV P24 Antigen Negative 01/16/18 01/16/18 06:00 06:00 WBC RBC Hgb Hct MCV MCH MCHC RDW Plt Count MPV Sodium 139 Potassium 3.8 Chloride 100 Carbon Dioxide 28 Anion Gap 11 BUN 12 Creatinine 0.9 Creat Clearance w eGFR > 60 Random Glucose 83 Calcium 8.8 Total Bilirubin 0.4 AST 22 ALT 35 Alkaline Phosphatase 104 Total Protein 6.8 Albumin 3.7 Urine Color Urine Appearance Urine pH Ur Specific [place] Urine Protein Urine Glucose (UA) Urine Ketones Urine Blood Urine Nitrite Urine Bilirubin Urine Urobilinogen Ur Leukocyte Esterase Urine WBC (Auto) Urine RBC (Auto) Ur Epithelial Cells Urine Bacteria Hyaline Casts Urine Mucus RPR Titer Nonreactive HIV 1&2 Antibody Screen HIV P24 Antigen Assessment: 01/17/18 13:02 WITHDRAWAL SX Plan: CONTINUE DETOX INCREASE PO FLUIDS
[2018-01-17] MEDS: THIAMINE HCL 100 MG TABLET (FP) PO SCH (22:25)
[2018-01-17] MEDS: QUEtiapine FUMARATE 100 MG TABLET (FP) PO SCH (22:25)
[2018-01-18] MEDS: chlordiazePOXIDE 5 MG CAPSULE PO SCH (05:44)
[2018-01-18] MEDS: chlordiazePOXIDE HCL 10 MG CAPSULE PO SCH ×3 (10:48→22:29)
[2018-01-18] MEDS: METHADONE HCL 5 MG TABLET (FOR DETOX USE ONLY) PO SCH (10:48)
[2018-01-18] MEDS: ESCITALOPRAM OXALATE 10 MG TABLET (FP) PO SCH (10:48)
[2018-01-18] MEDS: PRENATAL VITAMINS W/ FOLIC ACID TABLET (FP) PO SCH (10:49)
[2018-01-18] MEDS: NICOTINE POLACRILEX 2 MG GUM BUC PRN (11:40)
--- NOTE | 2018-01-18 17:35 | PN ---
S Progress Note (SOAP) Subjective: Tremors, interrupted sleep, joint pain Objective: 01/18/18 17:35 Vital Signs 01/18/18 01/18/18 10:51 15:08 Temperature 97.3 F L 97.0 F L Pulse Rate 81 82 Respiratory 20 18 Rate Blood Pressure 129/78 130/81 Laboratory Last Values WBC 16.6 K/mm3 (4.0-10.0) H D 01/16/18 06:00 RBC 3.77 M/mm3 (3.60-5.2) 01/16/18 06:00 Hgb 12.5 GM/dL (10.7-15.3) 01/16/18 06:00 Hct 37.9 % (32.4-45.2) 01/16/18 06:00 MCV 100.6 fl (80-96) H 01/16/18 06:00 MCH 33.1 pg (25.7-33.7) 01/16/18 06:00 MCHC 32.9 g/dl (32.0-36.0) 01/16/18 06:00 RDW 13.4 % (11.6-15.6) 01/16/18 06:00 Plt Count 261 K/MM3 (134-434) 01/16/18 06:00 MPV 9.5 fl (7.5-11.1) 01/16/18 06:00 Sodium 139 mmol/L (136-145) 01/16/18 06:00 Potassium 3.8 mmol/L (3.5-5.1) 01/16/18 06:00 Chloride 100 mmol/L (98-107) 01/16/18 06:00 Carbon Dioxide 28 mmol/L (21-32) 01/16/18 06:00 Anion Gap 11 (8-16) 01/16/18 06:00 BUN 12 mg/dL (7-18) 01/16/18 06:00 Creatinine 0.9 mg/dL (0.55-1.02) 01/16/18 06:00 Creat Clearance w eGFR > 60 (>60) 01/16/18 06:00 Random Glucose 83 mg/dL (74-106) 01/16/18 06:00 Calcium 8.8 mg/dL (8.5-10.1) 01/16/18 06:00 Total Bilirubin 0.4 mg/dL (0.2-1.0) 01/16/18 06:00 AST 22 U/L (15-37) 01/16/18 06:00 ALT 35 U/L (12-78) 01/16/18 06:00 Alkaline Phosphatase 104 U/L (45-117) 01/16/18 06:00 Total Protein 6.8 g/dl (6.4-8.2) 01/16/18 06:00 Albumin 3.7 g/dl (3.4-5.0) 01/16/18 06:00 Urine Color Yellow 01/15/18 14:05 Urine Appearance Cloudy 01/15/18 14:05 Urine pH 5.0 (5.0-8.0) 01/15/18 14:05 Ur Specific [place] 1.011 (1.001-1.035) 01/15/18 14:05 Urine Protein Negative (NEGATIVE) 01/15/18 14:05 Urine Glucose (UA) Negative (NEGATIVE) 01/15/18 14:05 Urine Ketones Negative (NEGATIVE) 01/15/18 14:05 Urine Blood 1+ (NEGATIVE) H 01/15/18 14:05 Urine Nitrite Negative (NEGATIVE) 01/15/18 14:05 Urine Bilirubin Negative (<2.0 mg/dL) 01/15/18 14:05 Urine Urobilinogen 4.0 e.u/dl mg/dL (0.2-1.0) H 01/15/18 14:05 Ur Leukocyte Esterase 2+ (NEGATIVE) H 01/15/18 14:05 Urine WBC (Auto) 17 /hpf (3-5) 01/15/18 14:05 Urine RBC (Auto) 5 /hpf (0-3) 01/15/18 14:05 Ur Epithelial Cells Many /HPF (FEW) 01/15/18 14:05 Urine Bacteria Rare /hpf (NONE SEEN) 01/15/18 14:05 Hyaline Casts 4 /lpf 01/15/18 14:05 Urine Mucus Rare 01/15/18 14:05 RPR Titer Nonreactive (NONREACTIVE) 01/16/18 06:00 HIV 1&2 Antibody Screen Negative 01/15/18 11:30 HIV P24 Antigen Negative 01/15/18 11:30 Labs noted Assessment: 01/18/18 17:35 Withdrawal sx Plan: Continue detox
[2018-01-18] MEDS: QUEtiapine FUMARATE 100 MG TABLET (FP) PO SCH (22:29)
[2018-01-18] MEDS: THIAMINE HCL 100 MG TABLET (FP) PO SCH (22:29)
[2018-01-19] MEDS: chlordiazePOXIDE HCL 10 MG CAPSULE PO SCH (06:26)
[2018-01-19] MEDS ORDERED: METHADONE HCL 10 MG TABLET (FOR DETOX USE ONLY) PO SCH (10:00)
[2018-01-19] MEDS: ESCITALOPRAM OXALATE 10 MG TABLET (FP) PO SCH (10:39)
[2018-01-19] MEDS: PRENATAL VITAMINS W/ FOLIC ACID TABLET (FP) PO SCH (10:39)
--- NOTE | 2018-01-19 11:18 | PN ---
[facility] Progress Note (SOAP) Subjective: feeling better less body ache less tremor sleep better at night social with peers in day room Objective: 01/19/18 11:16 Vital Signs Temperature 98.1 F 01/19/18 10:36 Pulse Rate 78 01/19/18 10:36 Respiratory Rate 20 01/19/18 10:36 Blood Pressure 136/89 01/19/18 10:36 O2 Sat by Pulse Oximetry (%) Laboratory Last Values WBC 16.6 K/mm3 (4.0-10.0) H D 01/16/18 06:00 RBC 3.77 M/mm3 (3.60-5.2) 01/16/18 06:00 Hgb 12.5 GM/dL (10.7-15.3) 01/16/18 06:00 Hct 37.9 % (32.4-45.2) 01/16/18 06:00 MCV 100.6 fl (80-96) H 01/16/18 06:00 MCH 33.1 pg (25.7-33.7) 01/16/18 06:00 MCHC 32.9 g/dl (32.0-36.0) 01/16/18 06:00 RDW 13.4 % (11.6-15.6) 01/16/18 06:00 Plt Count 261 K/MM3 (134-434) 01/16/18 06:00 MPV 9.5 fl (7.5-11.1) 01/16/18 06:00 Sodium 139 mmol/L (136-145) 01/16/18 06:00 Potassium 3.8 mmol/L (3.5-5.1) 01/16/18 06:00 Chloride 100 mmol/L (98-107) 01/16/18 06:00 Carbon Dioxide 28 mmol/L (21-32) 01/16/18 06:00 Anion Gap 11 (8-16) 01/16/18 06:00 BUN 12 mg/dL (7-18) 01/16/18 06:00 Creatinine 0.9 mg/dL (0.55-1.02) 01/16/18 06:00 Creat Clearance w eGFR > 60 (>60) 01/16/18 06:00 Random Glucose 83 mg/dL (74-106) 01/16/18 06:00 Calcium 8.8 mg/dL (8.5-10.1) 01/16/18 06:00 Total Bilirubin 0.4 mg/dL (0.2-1.0) 01/16/18 06:00 AST 22 U/L (15-37) 01/16/18 06:00 ALT 35 U/L (12-78) 01/16/18 06:00 Alkaline Phosphatase 104 U/L (45-117) 01/16/18 06:00 Total Protein 6.8 g/dl (6.4-8.2) 01/16/18 06:00 Albumin 3.7 g/dl (3.4-5.0) 01/16/18 06:00 Urine Color Yellow 01/15/18 14:05 Urine Appearance Cloudy 01/15/18 14:05 Urine pH 5.0 (5.0-8.0) 01/15/18 14:05 Ur Specific [place] 1.011 (1.001-1.035) 01/15/18 14:05 Urine Protein Negative (NEGATIVE) 01/15/18 14:05 Urine Glucose (UA) Negative (NEGATIVE) 01/15/18 14:05 Urine Ketones Negative (NEGATIVE) 01/15/18 14:05 Urine Blood 1+ (NEGATIVE) H 01/15/18 14:05 Urine Nitrite Negative (NEGATIVE) 01/15/18 14:05 Urine Bilirubin Negative (<2.0 mg/dL) 01/15/18 14:05 Urine Urobilinogen 4.0 e.u/dl mg/dL (0.2-1.0) H 01/15/18 14:05 Ur Leukocyte Esterase 2+ (NEGATIVE) H 01/15/18 14:05 Urine WBC (Auto) 17 /hpf (3-5) 01/15/18 14:05 Urine RBC (Auto) 5 /hpf (0-3) 01/15/18 14:05 Ur Epithelial Cells Many /HPF (FEW) 01/15/18 14:05 Urine Bacteria Rare /hpf (NONE SEEN) 01/15/18 14:05 Hyaline Casts 4 /lpf 01/15/18 14:05 Urine Mucus Rare 01/15/18 14:05 RPR Titer Nonreactive (NONREACTIVE) 01/16/18 06:00 HIV 1&2 Antibody Screen Negative 06/20/18 11:30 HIV P24 Antigen Negative 01/15/18 11:30 lab noted Assessment: 01/19/18 11:17 mild withdrawal sx Plan: medically supervised detox increase oral fluid personal hygiene
[2018-01-20] MEDS ORDERED: METHADONE HCL 5 MG TABLET (FOR DETOX USE ONLY) PO SCH (06:00)
[2018-01-20] MEDS: QUEtiapine FUMARATE 100 MG TABLET (FP) PO SCH (08:26)
[2018-01-20] MEDS: THIAMINE HCL 100 MG TABLET (FP) PO SCH (08:26)
[2018-01-20] MEDS: ESCITALOPRAM OXALATE 10 MG TABLET (FP) PO SCH (09:14)
[2018-01-20] MEDS: PRENATAL VITAMINS W/ FOLIC ACID TABLET (FP) PO SCH (09:45)
--- NOTE | 2018-01-20 11:29 | DS ---
[facility] Detox Discharge Summary Admission Date: 01/15/18 Discharge Date: 01/20/18 - History Present History: Alcohol Dependence, Opioid Dependence Additional Comments: 47 years old female admitted 01/15/18 for alcohol and opiate withdrawal sx completed alcohol and opiate detox regimen tolerated well denies alcohol and opiate withdrawal sx alert oriented x 3 no acute distress aftercare [facility] maintenance program - Physical Exam Results Vital Signs: Vital Signs Temperature 97.9 F 01/20/18 08:40 Pulse Rate 85 01/20/18 08:40 Respiratory Rate 18 01/20/18 08:40 Blood Pressure 122/83 01/20/18 08:40 O2 Sat by Pulse Oximetry (%) Pertinent Admission Physical Exam Findings: opiate and alcohol withdrawal sx Vital Signs Temperature 97.9 F 01/20/18 08:40 Pulse Rate 85 01/20/18 08:40 Respiratory Rate 18 01/20/18 08:40 Blood Pressure 122/83 01/20/18 08:40 O2 Sat by Pulse Oximetry (%) Laboratory Last Values WBC 16.6 K/mm3 (4.0-10.0) H D 01/16/18 06:00 RBC 3.77 M/mm3 (3.60-5.2) 01/16/18 06:00 Hgb 12.5 GM/dL (10.7-15.3) 01/16/18 06:00 Hct 37.9 % (32.4-45.2) 01/16/18 06:00 MCV 100.6 fl (80-96) H 01/16/18 06:00 MCH 33.1 pg (25.7-33.7) 01/16/18 06:00 MCHC 32.9 g/dl (32.0-36.0) 01/16/18 06:00 RDW 13.4 % (11.6-15.6) 01/16/18 06:00 Plt Count 261 K/MM3 (134-434) 01/16/18 06:00 MPV 9.5 fl (7.5-11.1) 01/16/18 06:00 Sodium 139 mmol/L (136-145) 01/16/18 06:00 Potassium 3.8 mmol/L (3.5-5.1) 01/16/18 06:00 Chloride 100 mmol/L (98-107) 01/16/18 06:00 Carbon Dioxide 28 mmol/L (21-32) 01/16/18 06:00 Anion Gap 11 (8-16) 01/16/18 06:00 BUN 12 mg/dL (7-18) 01/16/18 06:00 Creatinine 0.9 mg/dL (0.55-1.02) 01/16/18 06:00 Creat Clearance w eGFR > 60 (>60) 01/16/18 06:00 Random Glucose 83 mg/dL (74-106) 01/16/18 06:00 Calcium 8.8 mg/dL (8.5-10.1) 01/16/18 06:00 Total Bilirubin 0.4 mg/dL (0.2-1.0) 01/16/18 06:00 AST 22 U/L (15-37) 01/16/18 06:00 ALT 35 U/L (12-78) 01/16/18 06:00 Alkaline Phosphatase 104 U/L (45-117) 01/16/18 06:00 Total Protein 6.8 g/dl (6.4-8.2) 01/16/18 06:00 Albumin 3.7 g/dl (3.4-5.0) 01/16/18 06:00 Urine Color Yellow 01/15/18 14:05 Urine Appearance Cloudy 01/15/18 14:05 Urine pH 5.0 (5.0-8.0) 01/15/18 14:05 Ur Specific [place] 1.011 (1.001-1.035) 01/15/18 14:05 Urine Protein Negative (NEGATIVE) 01/15/18 14:05 Urine Glucose (UA) Negative (NEGATIVE) 01/15/18 14:05 Urine Ketones Negative (NEGATIVE) 01/15/18 14:05 Urine Blood 1+ (NEGATIVE) H 01/15/18 14:05 Urine Nitrite Negative (NEGATIVE) 01/15/18 14:05 Urine Bilirubin Negative (<2.0 mg/dL) 01/15/18 14:05 Urine Urobilinogen 4.0 e.u/dl mg/dL (0.2-1.0) H 01/15/18 14:05 Ur Leukocyte Esterase 2+ (NEGATIVE) H 01/15/18 14:05 Urine WBC (Auto) 17 /hpf (3-5) 01/15/18 14:05 Urine RBC (Auto) 5 /hpf (0-3) 01/15/18 14:05 Ur Epithelial Cells Many /HPF (FEW) 01/15/18 14:05 Urine Bacteria Rare /hpf (NONE SEEN) 01/15/18 14:05 Hyaline Casts 4 /lpf 01/15/18 14:05 Urine Mucus Rare 01/15/18 14:05 RPR Titer Nonreactive (NONREACTIVE) 01/16/18 06:00 HIV 1&2 Antibody Screen Negative 01/15/18 11:30 HIV P24 Antigen Negative 01/15/18 11:30 lab noted - Treatment Hospital Course: Detox Protocol Followed, Detoxed Safely, Responded well, Discharged Condition Good, Rehab Referral Accepted Patient has Accepted a Rehab Referral to: [place] [facility] - Medication Discharge Medications: Ambulatory Orders Escitalopram Oxalate [Lexapro -] 5 mg PO DAILY #30 tablet 01/15/18 Quetiapine Fumarate [Seroquel] 100 mg PO HS #30 tablet 01/15/18 - Diagnosis (1) Alcohol dependence with uncomplicated withdrawal Current Visit: Yes Status: Acute (2) Nicotine dependence Current Visit: Yes Status: Acute Qualifiers: Nicotine product type: cigarettes Substance use status: in withdrawal Qualified Code(s): F17.213 - Nicotine dependence, cigarettes, with withdrawal (3) Opioid dependence with withdrawal Current Visit: Yes Status: Acute (4) Schizoaffective disorder Current Visit: Yes Status: Suspected Qualifiers: Schizoaffective disorder type: unspecified Qualified Code(s): F25.9 - Schizoaffective disorder, unspecified - AMA Did Patient Leave Against Medical Advice: No
[2018-01-20 11:36] VITALS: BP 134/77; PULSE 84; TEMP 98
== END 2018-01-20 09:25 | disposition home or self-care (01) | DRG 773 ==
LOC: YASAS 08:05 → Y6N 11:14
PROVIDERS: ADMIT Family Medicine Addiction Medicine; ATTEND Family Medicine Addiction Medicine
PROC: HZ2ZZZZ Detoxification Services for Substance Abuse Treatment (ICD-10-PCS; principal; 2018-01-15)
DX: F11.23 Opioid dependence with withdrawal (principal); F10.230 Alcohol dependence with withdrawal, uncomplicated; F17.213 Nicotine dependence, cigarettes, with withdrawal; F31.9 Bipolar disorder, unspecified; F25.9 Schizoaffective disorder, unspecified; F32.9 Major depressive disorder, single episode, unspecified; Z98.890 Other specified postprocedural states; F14.21 Cocaine dependence, in remission
CPT/HCPCS: 36415; 80053; 81003; 81015; 85027; 86593; 87389; 93005; 93010

== ENCOUNTER 2018-05-13 09:12 | Inpatient (IN) | payer OTHER ==
[2018-05-13 09:30] VITALS: BMI 26.1
--- NOTE | 2018-05-13 14:56 | HP ---
COWS - Scale Resting Pulse: 1= CO 81-100 Sweatin= Chills/Flushing Restless Observation: 1= Difficult to Sit Still Pupil Size: 1= Pupils >than Normal Bone or Joint Aches: 2= Severe Diffuse Aches Runny Nose/ Eye Tearin= Runny Nose/Eyes GI Upset > 30mins: 2= Nausea/Diarrhea Tremor Observation: 2= Slight Tremor Visible Yawning Observation: 1= 1-2x During Session Anxiety or Irritability: 2=Irritable/Anxious Goose Flesh Skin: 0=Smooth Skin COWS Score: 15 CIWA Score - CIWA Score Nausea/Vomitin Muscle Tremors: 2 Anxiety: 2 Agitation: 2 Paroxysmal Sweats: 1-Minimal Palms Moist Orientation: 0-Oriented Tacttile Disturbances: 1-Very Mild Itch/Numbness Auditory Disturbances: 1-Very Mild Visual Disturbances: 1-Very Mild Sensitivity Headache: 2-Mild CIWA-Ar Total Score: 14 Admission ROS BHS - HPI Chief Complaint: i need help to stop using heroin,alcohol and marijuana Allergies/Adverse Reactions: Allergies Allergy/AdvReac Type Severity Reaction Status Date / Time No Known Allergies Allergy Verified 05/13/18 14:44 History of Present Illness: this 47 years old female with heroin,alcohol and marijuana dependence,seeking detox,on suboxone maintenence by her pmd, refer by pmd with the letter that patient will not be receiving prescription for buboxone any more weight loss nicotine dependence bipolar disorder,depression,schizoaffective disorder asthma multiple admissions in detox but keep relapsing surgery of right wrist in 2014,unable to move and use right hand since then longest time of sobriety 6 years - Ebola screening Have you traveled outside of the country in the last 21 days: No (N) Have you had contact with anyone from an Ebola affected area: No Have you been sick,other than usual withdrawal symptoms: No Do you have a fever: No - Review of Systems Constitutional: Chills, Loss of Appetite, Malaise, Night Sweats, Changes in sleep, Weakness, Unintentional Wgt. Loss EENT: reports: Tearing, Nose Congestion Respiratory: reports: No Symptoms reported, Other (history of asthma) Cardiac: reports: No Symptoms Reported GI: reports: Nausea, Poor Appetite, Abdominal cramping : reports: No Symptoms Reported Musculoskeletal: reports: Back Pain, Joint Pain, Muscle Pain, Joint Stiffness Integumentary: reports: Dryness Neuro: reports: Headache, Tremors Endocrine: reports: No Symptoms Reported Hematology: reports: No Symptoms Reported Psychiatric: reports: No Sypmtoms Reported, Judgement Intact, Mood/Affect Appropiate, Orientated x3, Depressed (bipolar disorder,depression, schizoaffective disorder) Patient History - Patient Medical History Hx Anemia: No Hx Asthma: Yes (on albuterol inhaler) Hx Chronic Obstructive Pulmonary Disease (COPD): No Hx Cancer: No Hx Cardiac Disorders: No Hx Congestive Heart Failure: No Hx Hypertension: No Hx Hypercholesterolemia: No Hx Pacemaker: No HX Cerebrovascular Accident: No Hx Seizures: No Hx Dementia: No Hx Diabetes: No Hx Gastrointestinal Disorders: No Hx Liver Disease: No Hx Genitourinary Disorders: No Hx Sexually Transmitted Disorders: No Hx Renal Disease (ESRD): No Hx Thyroid Disease: No Hx Human Immunodeficiency Virus (HIV): No (Last Tested: 05/14: NEGATIVE.) Hx Hepatitis C: No (Uncertain if Ever Tested.) Hx Depression: Yes Hx Suicide Attempt: No Hx Bipolar Disorder: Yes (On meds.) Hx Schizophrenia: Yes (schizoaffective disorder) Other Medical History: no suicidal,no homicidal,low back pain,frequent fall - Patient Surgical History Past Surgical History: Yes Hx Neurologic Surgery: No Hx Cataract Extraction: No Hx Cardiac Surgery: No Hx Lung Surgery: No Hx Breast Surgery: No Hx Breast Biopsy: No Hx Abdominal Surgery: No Hx Appendectomy: No Hx Cholecystectomy: No Hx Genitourinary Surgery: No Hx Section: No Hx Orthopedic Surgery: Yes (ambulatory surgery R wrist in 2015: Tendon Tear, Unkown etiology.) Other Surgical History: Patient has had limited use of Right hand for 2 yrs since surgery. Anesthesia Reaction: No - PPD History Previous Implant?: Yes Documented Results: Negative w/o proof Implanted On Prior R Admission?: Yes Date: 02/09/17 Results: 0 mm PPD to be Administered?: Yes - Reproductive History Patient is a Female of Child Bearing Age (11 -55 yrs old): Yes Last Menstrual Period: 04/22/18 Patient : No - Smoking Cessation Smoking history: Current every day smoker Have you smoked in the past 12 months: Yes Aproximately how many cigarettes per day: 20 Cigars Per Day: 0 Hx Chewing Tobacco Use: No Initiated information on smoking cessation: Yes 'Breaking Loose' booklet given: 05/13/18 - Substance & Tx. History Hx Alcohol Use: Yes Hx Substance Use: Yes Substance Use Type: Alcohol, Cocaine, Heroin Hx Substance Use Treatment: Yes ([facility] 01/15/18 to 01/20/18) - Substances Abused Heroin Route: Inhalation Frequency: Daily Amount used: 20 bags Age of first use: 30 Date of Last Use: 05/12/18 Alcohol Route: Oral Frequency: Daily Amount used: 6pk beer Age of first use: 16 Date of Last Use: 05/13/18 Marijuana/Hashish Route: Smoking Frequency: 1-2 times per week Amount used: 1 joint Age of first use: 16 Date of Last Use: 05/12/18 Family Disease History - Family Disease History Family Disease History: Diabetes: Grandparent (lung/brain), Heart Disease: Mother (htn, PE), CA: Grandparent, Other: Father (substance use) Admission Physical Exam [facility] - Vital Signs Vital Signs: Vital Signs - 24 hr 05/13/18 09:27 Temperature 97.2 F L Pulse Rate 83 Respiratory 17 Rate Blood Pressure 122/66 - Physical General Appearance: Yes: Moderate Distress, Tremorous, Irritable, Sweating, Anxious HEENTM: Yes: Normal ENT Inspection, JUDY, Pharynx Normal Respiratory: Yes: Lungs Clear, Normal Breath Sounds, No Respiratory Distress Neck: Yes: Within Normal Limits, Supple, Trachea in good position Breast: Yes: Breast Exam Deferred Cardiology: Yes: Regular Rhythm, Regular Rate, S1, S2 Abdominal: Yes: Within Normal Limits, Normal Bowel Sounds, Non Tender, Flat, Soft Genitourinary: Yes: Within Normal Limits Back: Yes: Normal Inspection, Muscle Spasm Musculoskeletal: Yes: Back pain, Muscle Pain Extremities: Yes: Tremors (unable to use righ thand since surgery in 2014) Neurological: Yes: Within Normal Limits (unable to ude right hand), healthcare corporate account director II-XII NML intact, Fully Oriented, Alert Integumentary: Yes: Dry Lymphatic: Yes: Within Normal Limits - Diagnostic (1) Opioid dependence with withdrawal Current Visit: No Status: Acute (2) Alcohol dependence with uncomplicated withdrawal Current Visit: No Status: Acute (3) Encounter for monitoring Suboxone maintenance therapy Current Visit: No Status: Acute (4) Nicotine dependence Current Visit: No Status: Acute Qualifiers: Nicotine product type: cigarettes Substance use status: in withdrawal Qualified Code(s): F17.213 - Nicotine dependence, cigarettes, with withdrawal (5) Arthritis of both knees Current Visit: No Status: Chronic (6) Cocaine dependence Current Visit: No Status: Chronic Qualifiers: Substance use status: in remission Qualified Code(s): F14.21 - Cocaine dependence, in remission (7) Deformity of right wrist Current Visit: No Status: Chronic (8) History of hand surgery Current Visit: No Status: Chronic Comment: Right Hand. (9) History of schizoaffective disorder Current Visit: No Status: Chronic (10) Low back pain Current Visit: No Status: Chronic Qualifiers: Chronicity: chronic Back pain laterality: bilateral Sciatica presence: unspecified whether sciatica present Qualified Code(s): M54.5 - Low back pain ; G89.29 - Other chronic pain (11) Schizoaffective disorder Current Visit: No Status: Suspected Qualifiers: Schizoaffective disorder type: unspecified Qualified Code(s): F25.9 - Schizoaffective disorder, unspecified Comment: History as per self-report. (12) S/P wrist surgery Current Visit: No Status: Resolved Cleared for Admission S - Detox or Rehab [facility] Level of Care: Medically Managed Detox Regimen/Protocol: Methadone/Librium S Breath Alcohol Content Breath Alcohol Content: 0.042 Urine Pregancy Test - Result Urine Test Results: Negative- NO Line Present Urine Drug Screen - Results Drug Screen Negative: No Urine Drug Screen Results: THC-Marijuana, OPI-Opiates, OXY-Oxycodone, FEN- Fentanyl
[2018-05-13] MEDS ORDERED: P-EPHED 60MG/TRIPROLIDI 2.5MG TABLET PO PRN (15:11)
[2018-05-13] MEDS ORDERED: MENTHOL/PHENOL 1 EACH UD MM PRN (15:11)
[2018-05-13] MEDS ORDERED: MAG HYDROX/AL HYDROX/SIMETH 30 ML UNIT-DOSE CUP PO PRN (15:11)
[2018-05-13] MEDS ORDERED: IBUPROFEN 400 MG TABLET (FP) PO PRN (15:11)
[2018-05-13] MEDS ORDERED: LOPERAMIDE HCL 2 MG CAPSULE PO PRN (15:11)
[2018-05-13] MEDS ORDERED: hydrOXYzine PAMOATE 25 MG CAPSULE (FP) PO PRN (15:11)
[2018-05-13] MEDS ORDERED: guaiFENesin/D-METHORPHAN HB 10 ML UNIT-DOSE CUPS PO PRN (15:11)
[2018-05-13] MEDS ORDERED: ACETAMINOPHEN 325 MG TABLET (FP) PO PRN (15:11)
[2018-05-13] MEDS ORDERED: MAGNESIUM CITRATE 300 ML BOTTLE PO PRN (15:11)
[2018-05-13] MEDS ORDERED: MAGNESIUM HYDROX 2400MG/30ML ORAL SUSPENSION 30 ML CUP PO PRN (15:11)
[2018-05-13] MEDS ORDERED: ALBUTEROL SO4 8 GM HFA INHALER IH PRN (15:15)
[2018-05-13] MEDS ORDERED: CYCLOBENZAPRINE HCL 10 MG TABLET (FP) PO PRN (15:15)
[2018-05-13] MEDS ORDERED: METHADONE HCL 10 MG TABLET (FOR DETOX USE ONLY) PO ONE ×2 (17:00→23:00)
[2018-05-13] MEDS: chlordiazePOXIDE HCL 25 MG CAPSULE PO PRN (17:15)
[2018-05-13] MEDS: NICOTINE POLACRILEX 2 MG GUM BC PRN (20:38)
[2018-05-13] MEDS ORDERED: MELATONIN 5 MG TABLETS PO PRN (22:00)
[2018-05-13] MEDS: cloNIDine HCL 0.1 MG TABLET PO SCH (22:12)
[2018-05-13] MEDS: chlordiazePOXIDE HCL 25 MG CAPSULE PO SCH (22:13)
[2018-05-13] MEDS: THIAMINE HCL 100 MG TABLET (FP) PO SCH (22:13)
[2018-05-14] MEDS: chlordiazePOXIDE HCL 25 MG CAPSULE PO SCH ×4 (05:33→23:44)
--- NOTE | 2018-05-14 07:36 | CONSULT ---
[facility] Psychiatric Consult - Data Date of interview: 05/14/18 Admission source: [facility] Identifying data: This is a 47 years old female, single, unemployed, living alone, on PA with no psychiatric hospitalization history, with heroin,alcohol and marijuana , nicotine dependence,reporting withdrawal symptoms and seeking detox. Patient on on suboxone maintenence therapy history. Substance Abuse History: - Smoking Cessation. Smoking history: Current every day smoker. Have you smoked in the past 12 months: Yes. Aproximately how many cigarettes per day: 20. Cigars Per Day: 0. Hx Chewing Tobacco Use: No. Initiated information on smoking cessation: Yes. 'Breaking Loose' booklet given : 05/13/18. - Substance & Tx. History. Hx Alcohol Use: Yes. Hx Substance Use : Yes. Substance Use Type: Alcohol, Cocaine, Heroin. Hx Substance Use Treatment: Yes ([facility] 01/15/18 to 01/20/18) Medical History: Asthma, Weight loss history, deformity of right wrist Psychiatric History: Patient carries Bipolar Disorder, Shizophrenia as per computer, denies spsychiatric hospitalizations, reports taking prior to admission: Seroquel 100mg po qhs. Lexapro 5mg poqd. Patient minimizing past psychiatric history Physical/Sexual Abuse/Trauma History: Denies Additional Comment: Seroquel 100mg po qhs. Lexapro 5mg poqd Mental Status Exam - Mental Status Exam Alert and Oriented to: Person Cognitive Function: Fair Patient Appearance: Unkempt Mood: Angry Affect: Flat Patient Behavior: Sedated Speech Pattern: Delayed Voice Loudness: Mildly Soft/Quiet Thought Process: Circumstantial Thought Disorder: Being Controlled Hallucinations: Denies Suicidal Ideation: Denies Homicidal Ideation: Denies Insight/Judgement: Fair Sleep: Difficulty falling asleep Appetite: Weight loss Muscle strength/Tone: Mild Hypotonicity Gait/Station: Normal Additional Comments: Seroquel 100mg po qhs. Lexapro 5mg poqd Psychiatric Findings - Problem List ([place] 1, 2,3) (1) Alcohol dependence with uncomplicated withdrawal Current Visit: No Status: Acute (2) Cannabis dependence Current Visit: No Status: Acute (3) Cocaine dependence Current Visit: No Status: Acute (4) Nicotine dependence Current Visit: No Status: Acute Qualifiers: Nicotine product type: cigarettes Substance use status: in withdrawal Qualified Code(s): F17.213 - Nicotine dependence, cigarettes, with withdrawal (5) Non compliance w medication regimen Current Visit: No Status: Acute (6) Arthritis of both knees Current Visit: No Status: Chronic (7) Cocaine dependence Current Visit: No Status: Chronic Qualifiers: Substance use status: in remission Qualified Code(s): F14.21 - Cocaine dependence, in remission (8) Deformity of right wrist Current Visit: No Status: Chronic (9) History of hand surgery Current Visit: No Status: Chronic Comment: Right Hand. (10) History of schizoaffective disorder Current Visit: No Status: Chronic (11) Low back pain Current Visit: No Status: Chronic Qualifiers: Chronicity: chronic Back pain laterality: bilateral Sciatica presence: unspecified whether sciatica present Qualified Code(s): M54.5 - Low back pain ; G89.29 - Other chronic pain (12) Marihuana dependence Current Visit: No Status: Chronic (13) Opioid dependence Current Visit: No Status: Chronic Qualifiers: Substance use status: uncomplicated Qualified Code(s): F11.20 - Opioid dependence, uncomplicated (14) PTSD (post-traumatic stress disorder) Current Visit: No Status: Chronic (15) Weakness of right hand Current Visit: No Status: Chronic (16) Drug-induced mood disorder Current Visit: No Status: Suspected (17) History of bipolar disorder Current Visit: No Status: Suspected - Initial Treatment Plan Initial Treatment Plan: Seroquel 100mg po qhs. Lexapro 5mg poqd
[2018-05-14] MEDS ORDERED: METHADONE HCL 10 MG TABLET (FOR DETOX USE ONLY) PO SCH (10:00)
[2018-05-14] MEDS ORDERED: PRENATAL VITAMINS W/ FOLIC ACID TABLET (FP) PO SCH (10:00)
[2018-05-14] MEDS ORDERED: ESCITALOPRAM OXALATE 10 MG TABLET (FP) PO SCH (10:00)
--- NOTE | 2018-05-14 10:04 | PN ---
[facility] CIWA - CIWA Score Nausea/Vomitin-Mild Nausea/No Vomiting Muscle Tremors: 3 Anxiety: 2 Agitation: 3 Paroxysmal Sweats: 1-Minimal Palms Moist Orientation: 1-Uncertain about Date Tacttile Disturbances: 1-Very Mild Itch/Numbness Auditory Disturbances: 0-None Visual Disturbances: 0-None Headache: 1-Very Mild CIWA-Ar Total Score: 13 BHS COWS - Scale Resting Pulse: 0= WA 80 or Below Sweatin= Chills/Flushing Restless Observation: 1= Difficult to Sit Still Pupil Size: 0= Normal to Room Light Bone or Joint Aches: 1= Mild Discomfort Runny Nose/ Eye Tearin= Nasal Congestion GI Upset > 30mins: 2= Nausea/Diarrhea Tremor Observation of Outstretched Hands: 2= Slight Tremor Visible Yawning Observation: 1= 1-2x During Session Anxiety or Irritability: 1=Feels Anxious/Irritable Goose Flesh Skin: 3=Piloerection COWS Score: 13 S Progress Note (SOAP) Subjective: sweat tremor body aches joints pain low energy Objective: 05/14/18 09:55 Vital Signs Temperature 97.7 F 05/14/18 07:09 Pulse Rate 68 05/14/18 07:09 Respiratory Rate 18 05/14/18 07:09 Blood Pressure 118/84 05/14/18 07:09 O2 Sat by Pulse Oximetry (%) lab pending Assessment: 05/14/18 10:04 withdrawal sx Plan: continue detox
[2018-05-14 10:28] LABS: HEMATOCRIT 41.5 % (32.4-45.2); HEMOGLOBIN 13.3 GM/dL (10.7-15.3); MCH 32.3 pg (25.7-33.7); MCHC 31.9 g/dl (32.0-36.0); MEAN PLT VOLUME 9.4 fl (7.5-11.1); PLATELET COUNT 249 K/MM3 (134-434); RBC 4.11 M/mm3 (3.60-5.2); RDW 14.3 % (11.6-15.6); WHITE BLOOD COUNT 8.7 K/mm3 (4.0-10.0)
[2018-05-14] MEDS: cloNIDine HCL 0.1 MG TABLET PO SCH ×2 (10:44→23:43)
--- NOTE | 2018-05-14 10:48 | EKG ---
Test Reason : Blood Pressure : / mmHG Vent. Rate : 070 BPM Atrial Rate : 070 BPM P-R Int : 134 ms QRS Dur : 074 ms QT Int : 376 ms P-R-T Axes : 046 037 045 degrees QTc Int : 406 ms NORMAL SINUS RHYTHM NORMAL ECG WHEN COMPARED WITH ECG OF 15-JAN-2018 12:18, NO SIGNIFICANT CHANGE WAS FOUND Confirmed by PRITI RODNEY MD ([id number]) on 05/14/2018 10:47:59 AM Referred By: Confirmed By:PRITI RODNEY MD
[2018-05-14 10:52] LABS: ALBUMIN 3.8 g/dl (3.4-5.0); ALK PHOS 121 U/L (45-117); ANION GAP 4 MMOL/L (8-16); BILIRUBIN,TOTAL 0.6 mg/dL (0.2-1); BLOOD UREA NITROGEN 10 mg/dL (7-18); CALCIUM 9.6 mg/dL (8.5-10.1); CHLORIDE 110 mmol/L (98-107); CO2 29 mmol/L (21-32); CREATININE 0.9 mg/dL (0.55-1.3); GLUCOSE,RANDOM 78 mg/dL (74-106); POTASSIUM 4.9 mmol/L (3.5-5.1); SGOT/AST 82 U/L (15-37); SGPT/ALT 57 U/L (13-61); SODIUM 143 mmol/L (136-145); TOT PROT 7.2 g/dl (6.4-8.2)
[2018-05-14] MEDS: chlordiazePOXIDE HCL 25 MG CAPSULE PO PRN (20:44)
[2018-05-14] MEDS: NICOTINE POLACRILEX 2 MG GUM BC PRN (20:45)
[2018-05-14 20:58] LABS: URINE APPEARANCE SLCLOUDY; URINE BILIRUBIN NEGATIVE (<2.0 mg/dL); URINE COLOR DKYELLOW; URINE GLUCOSE (UA) NEGATIVE (NEGATIVE); URINE KETONE NEGATIVE (NEGATIVE); URINE LEUK ESTERASE 1+ (NEGATIVE); URINE NITRITE NEGATIVE (NEGATIVE); URINE PROTEIN NEGATIVE (NEGATIVE); URINE UROBILINOGEN 4.0 E.U/dl mg/dL (0.2-1.0)
[2018-05-14 21:12] LABS: EPI CELLS FEW /HPF (FEW); URINE MUCUS RARE
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
[2018-05-14] MEDS ORDERED: QUEtiapine FUMARATE 100 MG TABLET (FP) PO SCH (22:00)
[2018-05-14] MEDS: THIAMINE HCL 100 MG TABLET (FP) PO SCH (23:44)
[2018-05-15] MEDS: chlordiazePOXIDE HCL 25 MG CAPSULE PO PRN (02:02)
[2018-05-15] MEDS: chlordiazePOXIDE HCL 25 MG CAPSULE PO SCH (05:17)
[2018-05-15 09:11] VITALS: BP 121/73; PULSE 65; TEMP 96.8
[2018-05-15] MEDS ORDERED: METHADONE HCL 5 MG TABLET (FOR DETOX USE ONLY) PO SCH (10:00)
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
[2018-05-15] MEDS ORDERED: chlordiazePOXIDE 5 MG CAPSULE PO SCH (23:00)
[2018-05-16] MEDS ORDERED: chlordiazePOXIDE HCL 10 MG CAPSULE PO SCH (23:00)
[2018-05-17] MEDS ORDERED: METHADONE HCL 10 MG TABLET (FOR DETOX USE ONLY) PO SCH (10:00)
[2018-05-18] MEDS ORDERED: METHADONE HCL 5 MG TABLET (FOR DETOX USE ONLY) PO SCH (06:00)
== END 2018-05-15 09:30 | disposition left against medical advice (07) | DRG 773 ==
LOC: YASAS 09:12 → Y6N 15:28
PROC: HZ2ZZZZ Detoxification Services for Substance Abuse Treatment (ICD-10-PCS; principal; 2018-05-13)
DX: F11.23 Opioid dependence with withdrawal (principal); F10.230 Alcohol dependence with withdrawal, uncomplicated; F17.210 Nicotine dependence, cigarettes, uncomplicated; F19.24 Other psychoactive substance dependence with psychoactive substance-induced mood disorder; F91.8 Other conduct disorders; F43.10 Post-traumatic stress disorder, unspecified; F25.9 Schizoaffective disorder, unspecified; M54.5 Low back pain; G89.29 Other chronic pain; J45.909 Unspecified asthma, uncomplicated; M13.862 Other specified arthritis, left knee; M13.861 Other specified arthritis, right knee; S61.051A Open bite of right thumb without damage to nail, initial encounter; Y04.1XXA Assault by human bite, initial encounter; Y93.89 Activity, other specified; Y92.238 Other place in hospital as the place of occurrence of the external cause; Z91.14 Patient's other noncompliance with medication regimen; Z87.898 Personal history of other specified conditions
CPT/HCPCS: 36415; 80053; 81003; 81015; 85027; 86593; 93005; 93010; J0735

== ENCOUNTER 2018-05-14 22:49 | Emergency (ER) | payer OTHER ==
[2018-05-14 22:57] VITALS: BP 125/72; PULSE 84; TEMP 98; BMI 26.1
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
[2018-05-15] MEDS ORDERED: AMOX TR/POT CLAV 875MG/125MG TABLETS (FP) PO ONE (00:29)
[2018-05-15] MEDS ORDERED: DIPHTH,PERTUSS(ACELL),TET 0.5 ML DISP.SYRIN IM ONE (00:29)
== END 2018-05-15 00:50 | disposition home or self-care (01) ==
LOC: JER 22:49
PROC: 3E0234Z Introduction of Serum, Toxoid and Vaccine into Muscle, Percutaneous Approach (ICD-10-PCS; principal; 2018-05-14)
DX: S61.452A Open bite of left hand, initial encounter (principal); Y04.1XXA Assault by human bite, initial encounter; Y93.89 Activity, other specified; Y92.238 Other place in hospital as the place of occurrence of the external cause; Y99.8 Other external cause status; F11.20 Opioid dependence, uncomplicated; F10.20 Alcohol dependence, uncomplicated; F12.20 Cannabis dependence, uncomplicated
CPT/HCPCS: 90715; 99281-25

== ENCOUNTER 2020-05-07 11:12 | Inpatient (IN) | payer OTHER ==
[2020-05-07] MEDS ORDERED: BISMUTH SUBSALICYLATE 524 MG/30 ML UD PO PRN (15:15)
[2020-05-07] MEDS ORDERED: ACETAMINOPHEN 325 MG TABLET (FP) PO PRN ×2 (15:15)
[2020-05-07] MEDS ORDERED: MAG HYDROX/AL HYDROX/SIMETH 30 ML UNIT-DOSE CUP PO PRN (15:15)
[2020-05-07] MEDS ORDERED: MAGNESIUM HYDROX 2400MG/30ML ORAL SUSPENSION 30 ML CUP PO PRN (15:15)
[2020-05-07] MEDS ORDERED: ONDANSETRON *ODT* 4 MG TABLET SL PRN (15:15)
[2020-05-07] MEDS ORDERED: IBUPROFEN 400 MG TABLET (FP) PO PRN (15:15)
[2020-05-07] MEDS ORDERED: chlordiazePOXIDE HCL 25 MG CAPSULE PO PRN (15:15)
[2020-05-07] MEDS ORDERED: cloNIDine HCL 0.1 MG TABLET PO PRN (15:15)
[2020-05-07] MEDS ORDERED: MAGNESIUM CITRATE 300 ML BOTTLE PO PRN (15:15)
[2020-05-07] MEDS ORDERED: METHOCARBAMOL 500 MG TABLET PO PRN (15:15)
[2020-05-07] MEDS ORDERED: MENTHOL/PHENOL 1 EACH UD MM PRN (15:15)
[2020-05-07 15:36] VITALS: BMI 26.7
[2020-05-07] MEDS ORDERED: METHADONE HCL 10 MG TABLET (FOR DETOX USE ONLY) PO ONE (17:15)
[2020-05-07] MEDS: chlordiazePOXIDE HCL 25 MG CAPSULE PO SCH ×2 (17:41→22:17)
[2020-05-07] MEDS: hydrOXYzine PAMOATE 25 MG CAPSULE (FP) PO SCH ×2 (19:58→22:17)
[2020-05-07] MEDS: MELATONIN 5 MG TABLETS PO SCH (22:17)
[2020-05-07] MEDS: THIAMINE HCL 100 MG TABLET (FP) PO SCH (22:17)
[2020-05-08] MEDS: chlordiazePOXIDE HCL 25 MG CAPSULE PO SCH ×4 (06:22→22:35)
[2020-05-08] MEDS: hydrOXYzine PAMOATE 25 MG CAPSULE (FP) PO SCH ×5 (06:23→22:36)
[2020-05-08] MEDS ORDERED: METHADONE HCL 5 MG TABLET (FOR DETOX USE ONLY) ONE (08:40)
[2020-05-08] MEDS ORDERED: METHADONE HCL 10 MG TABLET (FOR DETOX USE ONLY) ONE (08:40)
[2020-05-08] MEDS ORDERED: METHADONE (DETOX) 20 MG, METHADONE (DETOX) 5 MG PO ONE (10:00)
[2020-05-08 10:15] LABS: HEMOGLOBIN 12.5 GM/dL (10.7-15.3); MCH 33.3 pg (25.7-33.7); MCHC 32.8 g/dl (32.0-36.0); MEAN CELL VOLUME 101.4 fl (80-96); MEAN PLT VOLUME 8.6 fl (7.5-11.1); PLATELET COUNT 264 K/MM3 (134-434); RBC 3.75 M/mm3 (3.60-5.2); RDW 14.2 % (11.6-15.6); WHITE BLOOD COUNT 9.2 K/mm3 (4.0-10.0)
[2020-05-08 10:23] LABS: ALBUMIN 3.4 g/dl (3.4-5.0); BILIRUBIN,TOTAL 0.7 mg/dL (0.2-1); BLOOD UREA NITROGEN 11.8 mg/dL (7-18); CALCIUM 8.9 mg/dL (8.5-10.1); CREATININE 0.7 mg/dL (0.55-1.3); TOT PROT 6.3 g/dl (6.4-8.2)
[2020-05-08] MEDS: PRENATAL VITAMINS W/ FOLIC ACID TABLET (FP) PO SCH (10:26)
[2020-05-08] MEDS: NICOTINE 7 MG/24 HOURS TOPICAL PATCH TD SCH (10:26)
[2020-05-08] MEDS: NICOTINE POLACRILEX 2 MG GUM BUC PRN (10:27)
[2020-05-08 11:10] LABS: HIV INTERPRETATION NEGATIVE (NEGATIVE)
[2020-05-08] MEDS ORDERED: cloNIDine HCL 0.1 MG TABLET PO PRN (13:02)
[2020-05-08] MEDS ORDERED: FLU VACCINE (FLULAVAL) PF 60 MCG/0.5 ML SYRINGE 2020-2021 IM ONE (16:15)
[2020-05-08] MEDS: THIAMINE HCL 100 MG TABLET (FP) PO SCH (22:36)
[2020-05-08] MEDS: MELATONIN 5 MG TABLETS PO SCH (22:36)
[2020-05-09] MEDS: chlordiazePOXIDE HCL 25 MG CAPSULE PO SCH ×4 (06:03→22:04)
[2020-05-09] MEDS: hydrOXYzine PAMOATE 25 MG CAPSULE (FP) PO SCH ×5 (06:03→22:04)
[2020-05-09] MEDS ORDERED: METHADONE HCL 10 MG TABLET (FOR DETOX USE ONLY) PO ONE (10:00)
[2020-05-09] MEDS: PRENATAL VITAMINS W/ FOLIC ACID TABLET (FP) PO SCH (10:11)
[2020-05-09] MEDS: NICOTINE POLACRILEX 2 MG GUM BUC PRN (10:12)
[2020-05-09] MEDS: NICOTINE 7 MG/24 HOURS TOPICAL PATCH TD SCH (10:12)
[2020-05-09] MEDS: MELATONIN 5 MG TABLETS PO SCH (22:04)
[2020-05-09] MEDS: THIAMINE HCL 100 MG TABLET (FP) PO SCH (22:04)
[2020-05-10] MEDS ORDERED: chlordiazePOXIDE HCL 10 MG CAPSULE PO PRN
[2020-05-10] MEDS: hydrOXYzine PAMOATE 25 MG CAPSULE (FP) PO SCH ×5 (05:36→22:18)
[2020-05-10] MEDS: chlordiazePOXIDE HCL 10 MG CAPSULE PO SCH ×4 (05:36→22:18)
[2020-05-10] MEDS ORDERED: METHADONE HCL 10 MG TABLET (FOR DETOX USE ONLY) ONE (08:45)
[2020-05-10] MEDS ORDERED: METHADONE HCL 5 MG TABLET (FOR DETOX USE ONLY) ONE (08:46)
[2020-05-10] MEDS ORDERED: METHADONE (DETOX) 10 MG, METHADONE (DETOX) 5 MG PO ONE (10:00)
[2020-05-10] MEDS: PRENATAL VITAMINS W/ FOLIC ACID TABLET (FP) PO SCH (10:28)
[2020-05-10] MEDS: NICOTINE POLACRILEX 2 MG GUM BUC PRN (10:30)
[2020-05-10] MEDS: NICOTINE 7 MG/24 HOURS TOPICAL PATCH TD SCH (11:03)
[2020-05-10] MEDS: THIAMINE HCL 100 MG TABLET (FP) PO SCH (22:18)
[2020-05-10] MEDS: MELATONIN 5 MG TABLETS PO SCH (22:18)
[2020-05-11] MEDS: chlordiazePOXIDE HCL 10 MG CAPSULE PO SCH ×2 (05:47→17:35)
[2020-05-11] MEDS: hydrOXYzine PAMOATE 25 MG CAPSULE (FP) PO SCH ×4 (05:47→17:35)
[2020-05-11] MEDS ORDERED: METHADONE HCL 10 MG TABLET (FOR DETOX USE ONLY) PO ONE (10:00)
[2020-05-11] MEDS: PRENATAL VITAMINS W/ FOLIC ACID TABLET (FP) PO SCH (10:28)
[2020-05-11] MEDS: NICOTINE 7 MG/24 HOURS TOPICAL PATCH TD SCH (10:28)
[2020-05-11] MEDS: NICOTINE POLACRILEX 2 MG GUM BUC PRN (10:29)
[2020-05-11 17:17] VITALS: BP 124/75; PULSE 95; TEMP 98.7
[2020-05-12] MEDS ORDERED: chlordiazePOXIDE HCL 10 MG CAPSULE PO ONE (05:00)
[2020-05-12] MEDS ORDERED: METHADONE HCL 5 MG TABLET (FOR DETOX USE ONLY) PO ONE (06:00)
== END 2020-05-11 19:28 | disposition home or self-care (01) | DRG 773 ==
LOC: YASAS 11:12 → Y3N 15:36
PROVIDERS: ADMIT Allergy & Immunology; ATTEND Allergy & Immunology
PROC: HZ2ZZZZ Detoxification Services for Substance Abuse Treatment (ICD-10-PCS; principal; 2020-05-07)
DX: F11.23 Opioid dependence with withdrawal (principal); F10.230 Alcohol dependence with withdrawal, uncomplicated; F17.210 Nicotine dependence, cigarettes, uncomplicated; F25.9 Schizoaffective disorder, unspecified; F31.9 Bipolar disorder, unspecified; J45.909 Unspecified asthma, uncomplicated; M21.931 Unspecified acquired deformity of right forearm; R29.898 Other symptoms and signs involving the musculoskeletal system; R63.4 Abnormal weight loss; Z68.26 Body mass index [BMI] 26.0-26.9, adult; Z56.0 Unemployment, unspecified; Z98.890 Other specified postprocedural states
CPT/HCPCS: 36415; 80053; 81025; 85027; 86780; 87389; C9803; G0008; Q2036; U0003